=== PATIENT | male | born 1945 | race Caucasian/White ===

== ENCOUNTER → 2018-11-25 | Outpatient (CLI) | payer MEDICARE, OTHER ==
[2018-11-25 16:20] LABS: BUN/CREATININE RATIO 13; CALCIUM 9.6 MG/DL (8.5-10.1); CARBON DIOXIDE 25 MMOL/L (21-32); CHLORIDE 99 MMOL/L (98-107); GFR ESTIMATED > 60; GLUCOSE 136 MG/DL (70-105); POTASSIUM 4.4 MMOL/L (3.6-5.0); SODIUM 139 MMOL/L (135-145)
== END ==
LOC: LAB FS 15:20
PROVIDERS: ATTEND Nurse Practitioner Family
DX: I10 Essential (primary) hypertension (principal); J44.9 Chronic obstructive pulmonary disease, unspecified; Z79.899 Other long term (current) drug therapy
CPT/HCPCS: 36415; 80048; 83880

== ENCOUNTER → 2018-12-16 | Outpatient (CLI) | payer MEDICARE, OTHER ==
[2018-12-16 10:50] LABS: BUN/CREATININE RATIO 13; CALCIUM 9.3 MG/DL (8.5-10.1); CARBON DIOXIDE 27 MMOL/L (21-32); CHLORIDE 99 MMOL/L (98-107); CREATININE SERUM 0.98 MG/DL (0.60-1.30); GFR ESTIMATED > 60; GLUCOSE 243 MG/DL (70-105); POTASSIUM 4.4 MMOL/L (3.6-5.0); SODIUM 138 MMOL/L (135-145)
== END ==
LOC: LAB FS 10:22
PROVIDERS: ATTEND Nurse Practitioner Family
DX: I11.9 Hypertensive heart disease without heart failure (principal); I77.810 Thoracic aortic ectasia; I35.0 Nonrheumatic aortic (valve) stenosis; E78.2 Mixed hyperlipidemia
CPT/HCPCS: 36415; 80048

== ENCOUNTER 2020-03-25 14:55 | Inpatient (IN) | payer MEDICARE, OTHER ==
[2020-03-25] MEDS ORDERED: FURO20TA4 PO (15:23)
[2020-03-25] MEDS ORDERED: MTP25TSR PO (15:23)
[2020-03-25] MEDS ORDERED: ALBU2.5V4 NEB (15:23)
[2020-03-25] MEDS ORDERED: BUDE10.2 INH (15:23)
[2020-03-25] MEDS ORDERED: ATOR40TA70 PO (15:23)
[2020-03-25] MEDS ORDERED: CANA300T PO (15:23)
[2020-03-25] MEDS ORDERED: INSU100V SC (15:23)
[2020-03-25] MEDS ORDERED: INSU100V5 SC (15:23)
[2020-03-25] MEDS ORDERED: AMLO5TAB9 PO (15:23)
[2020-03-25] MEDS ORDERED: LOSA100T57 PO (15:23)
[2020-03-25] MEDS ORDERED: METF750T45 PO (15:23)
--- NOTE | 2020-03-25 15:26 | ED Respiratory ---
General Chief Complaint: Respiratory Problems Stated Complaint: SOB Source: patient, family, RN/MD, RN notes reviewed, old records Exam Limitations: no limitations History of Present Illness Date Seen by Provider: Mar 25, 2020 Time Seen by Provider: 15:15 Initial Comments This patient is a 74-year-old male that presents to the emergency department complaining she shortness of breath. Patient recently had a COVID-19 positive test 2 days ago. But has been short of breath since Sunday which was 5 days ago. Patient does have a history of emphysema and does wear oxygen at night. Patient also was take several breathing treatments throughout the day. Patient also has a history of diabetes and hypertension. Patient states just increasing shortness of breath.'s states both him and his are both sick and positive covert patient's. Patient states he just can't get enough air. We'll do medical evaluation treatment is needed. Patient's pulse ox on room air was 84%and was placed on nasal cannula at 2-3 L by nursing staff. Pulse ox at this time is up to 94% on oxygen Timing/Duration: week Severity: moderate Associated Symptoms: cough, fever/chills, shortness of breath Allergies and Home Medications Allergies Coded Allergies: pioglitazone (Verified Allergy, Unknown, cough, 03/25/20) Patient Home Medication List Home Medication List Reviewed: Yes Review of Systems Review of Systems Constitutional: No no symptoms reported, No see HPI; chills; No diaphoresis, No dizziness; fever, malaise; No weakness, No weight gain, No weight loss, No other EENTM: nose congestion; No see HPI, No no symptoms reported, No ear discharge, No hearing loss, No ear pain, No blurred vision, No double vision, No eye pain, No tearing, No vision loss, No dental problems, No hoarseness, No mouth pain, No mouth swelling, No epistaxis, No nose pain, No throat pain, No throat swelling, No other Respiratory: No no symptoms reported; see HPI, cough; No dyspnea on exertion, No hemoptysis, No orthopnea, No phlegm; short of breath; No stridor, No wheezing, No other Cardiovascular: No no symptoms reported, No see HPI, No chest pain, No edema, No Hx of Intervention, No palpitations, No syncope, No vascular heart diseas, No other Gastrointestinal: No RUQ, No LUQ, No RLQ, No LLQ, No no symptoms reported, No see HPI, No abdominal pain, No constipation, No diarrhea, No dysphagia, No hematemesis, No heartburn, No jaundice, No loss of appetite, No melena, No nausea, No vomiting, No other Genitourinary: No no symptoms reported, No see HPI, No decreased output, No discharge, No dysuria, No frequency, No hematuria, No hesitancy, No incontinence, No nocturia, No pain, No other Musculoskeletal: No no symptoms reported, No see HPI, No back pain, No gout, No joint pain, No joint swelling, No muscle pain, No muscle stiffness, No muscle cramps, No muscle twitching, No muscle weakness, No neck pain, No other Skin: No no symptoms reported, No see HPI, No change in color, No change in hair/nails, No dryness, No hx of skin cancer, No lesions, No lumps, No pruritus, No rash, No other Psychiatric/Neurological: Denies No Symptoms Reported, Denies See HPI, Denies Anxiety, Denies Depressed, Denies Emotional Problems, Denies Headache, Denies Numbness, Denies Paresthesia, Denies Pre-Existing Deficit, Denies Seizure, Denies Tingling, Denies Tremors, Denies Weakness, Denies Other All Other Systems Reviewed Negative Unless Noted: Yes Past Nihogcq-Zjjjvd-Tbxyrf Hx Patient Social History Recent Foreign Travel: No Contact w/Someone Who Travel: No Physical Exam Vital Signs - First Documented 03/25/20 15:24 Temp 39.3 Pulse 79 Resp 20 B/P (MAP) 152/63 (92) Pulse Ox 94 O2 Delivery Nasal Cannula O2 Flow Rate 2.00 Capillary Refill : Height: '" Weight: lbs. oz. kg; BMI Method: General Appearance: WD/WN, no apparent distress HEENT: PERRL/EOMI, normal ENT inspection, TMs normal, pharynx normal Neck: non-tender, full range of motion, supple, normal inspection, carotid bruit Respiratory: chest non-tender, lungs clear, no respiratory distress, no accessory muscle use, respiratory distress, decreased breath sounds Cardiovascular: normal peripheral pulses, regular rate, rhythm, no edema, no gallop, no JVD, no murmur Gastrointestinal: normal bowel sounds, non tender, soft, no organomegaly, no pulsatile mass Neurologic/Psychiatric: awake overnight monitor II-XII nml as tested, no motor/sensory deficits, alert, normal mood/affect, oriented x 3 Skin: normal color, warm/dry, damp Lymphatic: no adenopathy, axilla node tender (R), axilla node tender (L), inguinal node tender (R), inguinal node tender (L) Focused Exam Lactate Level 03/25/20 15:55: Lactic Acid Level 1.36 Lactic Acid Level Laboratory Tests Test 03/25/20 15:55 Lactic Acid Level 1.36 MMOL/L (0.50-2.00) Progress/Results/Core Measures Suspected Sepsis SIRS Temperature: Pulse: Respiratory Rate: Laboratory Tests 03/25/20 15:55: White Blood Count 4.4 Blood Pressure / Mean: 03/25/20 15:55: Lactic Acid Level 1.36 Laboratory Tests 03/25/20 15:55: Creatinine 1.03, INR Comment 0.8, Platelet Count 150, Total Bilirubin 0.6 Results/Orders Lab Results Laboratory Tests Test 03/25/20 15:55 03/25/20 16:08 Range/Units White Blood Count 4.4 4.3-11.0 10^3/uL Red Blood Count 5.37 4.35-5.85 10^6/uL Hemoglobin 16.2 13.3-17.7 G/DL Hematocrit 45 40-54 % Mean Corpuscular Volume 85 80-99 FL Mean Corpuscular Hemoglobin 30 25-34 PG Mean Corpuscular Hemoglobin Concent 36 32-36 G/DL Red Cell Distribution Width 13.0 10.0-14.5 % Platelet Count 150 130-400 10^3/uL Mean Platelet Volume 9.7 7.4-10.4 FL Neutrophils (%) (Auto) 77 H 42-75 % Lymphocytes (%) (Auto) 14 12-44 % Monocytes (%) (Auto) 8 0-12 % Eosinophils (%) (Auto) 0 0-10 % Basophils (%) (Auto) 1 0-10 % Neutrophils # (Auto) 3.4 1.8-7.8 X 10^3 Lymphocytes # (Auto) 0.6 L 1.0-4.0 X 10^3 Monocytes # (Auto) 0.3 0.0-1.0 X 10^3 Eosinophils # (Auto) 0.0 0.0-0.3 10^3/uL Basophils # (Auto) 0.0 0.0-0.1 10^3/uL Prothrombin Time 11.7 L 12.2-14.7 SEC INR Comment 0.8 0.8-1.4 Sodium Level 124 *L 135-145 MMOL/L Potassium Level 4.3 3.6-5.0 MMOL/L Chloride Level 92 L 98-107 MMOL/L Carbon Dioxide Level 20 L 21-32 MMOL/L Anion Gap 12 5-14 MMOL/L Blood Urea Nitrogen 22 H 7-18 MG/DL Creatinine 1.03 0.60-1.30 MG/DL Estimat Glomerular Filtration Rate > 60 BUN/Creatinine Ratio 21 Glucose Level 92 70-105 MG/DL Lactic Acid Level 1.36 0.50-2.00 MMOL/L Calcium Level 8.0 L 8.5-10.1 MG/DL Corrected Calcium 8.6 8.5-10.1 MG/DL Total Bilirubin 0.6 0.1-1.0 MG/DL Aspartate Amino Transf (AST/SGOT) 42 H 5-34 U/L Alanine Aminotransferase (ALT/SGPT) 35 0-55 U/L Alkaline Phosphatase 72 40-136 U/L Troponin I < 0.30 <0.30 NG/ML Pro-B-Type Natriuretic Peptide 157.5 H <75.0 PG/ML Total Protein 6.4 6.4-8.2 GM/DL Albumin 3.2 3.2-4.5 GM/DL Blood Gas Puncture Site RT RADIAL Blood Gas Patient Temperature 102.6 Arterial Blood pH 7.47 H 7.37-7.43 Arterial Blood Partial Pressure CO2 31 L 35-45 MMHG Arterial Blood Partial Pressure O2 64 L 79-93 MMHG Arterial Blood HCO3 23 23-27 MMOL/L Arterial Blood Total CO2 23.6 21.0-31.0 MMOL/L Arterial Blood Oxygen Saturation 93 L 94-100 % Arterial Blood Base Excess -0.3 -2.5-2.5 MMOL/L Derrell Test OK Blood Gas Ventilator Setting NO Blood Gas Inspired Oxygen 2L My Orders Orders - JANELLE ROJAS MD Cbc With Automated Diff (03/25/20 15:20) Creatine Kinase Mb (03/25/20 15:20) Blood Culture (03/25/20 15:20) Arterial Blood Gas (03/25/20 15:20) Probnp Fs (03/25/20 15:20) Protime With Inr (03/25/20 15:20) Troponin I Fs (03/25/20 15:20) Chest 1 View Ap/Pa Only (03/25/20 15:20) Ekg Tracing (03/25/20 15:20) Ed Iv/Invasive Line Start (03/25/20 15:20) Lactic Acid Analyzer (03/25/20 15:20) Albuterol/Ipra Inhalation Soln (Duoneb I (03/25/20 15:30) Svn Small Volume Nebulizer (03/25/20 15:22) Blood Culture (03/25/20 15:36) Acetaminophen Tablet/Caplet (Tylenol T (03/25/20 16:15) Comprehensive Metabolic Panel (03/25/20 16:32) Medications Given in ED Current Medications Medications Dose Ordered Sig/Sina Route Start Time Stop Time Status Last Admin Dose Admin Acetaminophen 650 mg ONCE ONCE PO 03/25/20 16:15 03/25/20 16:16 DC 03/25/20 16:15 650 MG Albuterol/ Ipratropium 3 ml ONCE ONCE INH 03/25/20 15:30 03/25/20 15:31 DC 03/25/20 16:05 3 ML Vital Signs/I&O 03/25/20 15:24 Temp 39.3 Pulse 79 Resp 20 B/P (MAP) 152/63 (92) Pulse Ox 94 O2 Delivery Nasal Cannula O2 Flow Rate 2.00 Capillary Refill : Progress Note : Time: 16:41 Progress Note IMPRESSION: Coarse interstitial lung markings greatest within the peripheral lung cuellar. Findings can be seen as a sequela of viral pneumonia. Clinical correlation is recommended. I did discuss at length with patient about his concerns for COPD COVID-19 positive patient with viral pneumonia shortness of breath. He is agreeable for transfer to [facility]. I did discuss at length with Dr. Skelton who is accepted this patient. Patient be transferred to their facility as soon as possible. ECG Initial ECG Impression Date: Mar 25, 2020 Initial ECG Impression Time: 15:30 Initial ECG Rate: 75 Initial ECG Rhythm: Normal Sinus, PAC Initial ECG Impression: Nonspecific Changes (sinus rhythm with PACs heart rate 75 has prolonged [place] interval right bundle branch block and nonspecific ST-T wave changes.) Departure Impression Primary Impression: Viral pneumonia Additional Impressions: COVID-19 COPD (chronic obstructive pulmonary disease) Dyspnea and respiratory abnormalities Diabetes Disposition: ADMITTED INPATIENT Condition: Stable Admissions Decision to Admit Reason: Admit from ER (General) Decision to Admit/Date: Mar 25, 2020 Time/Decision to Admit Time: 16:51 Transfer Transfer Reason: Exceeds level of care Time Spoke to Accepting Phy: 16:[address] Skelton Transfer Time: 16:51 Transfer Facility: [facility] Method of Transfer: EMS Departure-Patient Inst. Referrals: [facility] (PCP) Primary Care Physician HELENA YODER (Family) Primary Care Physician JANELLE ROJAS MD Mar 25, 2020 15:26
[2020-03-25] MEDS ORDERED: RT-ALBUTEROL/IPRATROPIUM 3 ML (DUONEB) VIAL INH ONE (15:30)
[2020-03-25 16:10] LABS: HEMATOCRIT 45 % (40-54); HEMOGLOBIN 16.2 G/DL (13.3-17.7); LYMPHOCYTES % (AUTO) 14 % (12-44); MEAN CORPUSCULAR HEMOGLOBIN 30 PG (25-34); MEAN CORPUSCULAR HGB CONC 36 G/DL (32-36); MEAN CORPUSCULAR VOLUME 85 FL (80-99); MEAN PLATELET VOLUME 9.7 FL (7.4-10.4); MONOCYTES % (AUTO) 8 % (0-12); NEUTROPHILS % (AUTO) 77 % (42-75); PLATELET COUNT 150 10^3/uL (130-400); WHITE BLOOD COUNT 4.4 10^3/uL (4.3-11.0)
[2020-03-25 16:11] LABS: BASOPHILS % (AUTO) 1 % (0-10); EOSINOPHILS % (AUTO) 0 % (0-10); LYMPHOCYTES # (AUTO) 0.6 X 10^3 (1.0-4.0); MONOCYTES # (AUTO) 0.3 X 10^3 (0.0-1.0); NEUTROPHILS # (AUTO) 3.4 X 10^3 (1.8-7.8)
--- NOTE | 2020-03-25 16:14 | Diagnostic Imaging Report ---
INDICATION: Shortness of air. COMPARISON: None. EXAMINATION: Single frontal radiographic view of the chest was obtained. FINDINGS: Normal cardiac silhouette and pulmonary vasculature. Lungs show coarse interstitial opacities greatest within the peripheral lung cuellar. There is no large effusion or pneumothorax. Osseous structures show no acute abnormality. IMPRESSION: Coarse interstitial lung markings greatest within the peripheral lung cuellar. Findings can be seen as a sequela of viral pneumonia. Clinical correlation is recommended. Dictated by: Dictated on workstation # [id number]
[2020-03-25] MEDS ORDERED: ACETAMINOPHEN 325 MG TABLET PO ONE (16:15)
[2020-03-25 16:17] LABS: ABG BASE EXCESS -0.3 MMOL/L (-2.5-2.5); ABG OXYGEN SATURATION 93 % (94-100); ABG PCO2 31 MMHG (35-45); ABG PH 7.47 (7.37-7.43); ABG PO2 64 MMHG (79-93); ABG TCO2 23.6 MMOL/L (21.0-31.0); ALLENS TEST OK
[2020-03-25 16:18] LABS: INSPIRED O2 2L; PATIENT TEMP 102.6; VENTILATOR NO
[2020-03-25 16:18] LABS: INR 0.8 (0.8-1.4); PROTHROMBIN TIME PATIENT 11.7 SEC (12.2-14.7)
[2020-03-25 16:55] LABS: BUN/CREATININE RATIO 21; CARBON DIOXIDE 20 MMOL/L (21-32); CHLORIDE 92 MMOL/L (98-107); CREATININE SERUM 1.03 MG/DL (0.60-1.30); GFR ESTIMATED > 60; GLUCOSE 92 MG/DL (70-105); POTASSIUM 4.3 MMOL/L (3.6-5.0); SODIUM 124 MMOL/L (135-145)
[2020-03-25 16:56] LABS: ALANINE AMINOTRANSFERASE 35 U/L (0-55); ALBUMIN 3.2 GM/DL (3.2-4.5); ALKALINE PHOSPHATASE 72 U/L (40-136); BILIRUBIN,TOTAL 0.6 MG/DL (0.1-1.0); TOTAL PROTEIN 6.4 GM/DL (6.4-8.2)
[2020-03-25] MEDS ORDERED: NS IV 1000 ML 1,000 ML IV STA (16:59)
[2020-03-25 19:06] VITALS: BP 169/83
[2020-03-25 19:45] VITALS: BP 149/90
[2020-03-25] MEDS ORDERED: diphenhydrAMINE 25 MG TAB (BENADRYL) PO PRN (19:45)
[2020-03-25] MEDS ORDERED: ONDANSETRON 4 MG/5 ML ORAL SOLN (ZOFRAN) 5 ML PO PRN (19:45)
[2020-03-25] MEDS ORDERED: ONDANSETRON 4 MG/2 ML (SDV) Z0FRAN IV PRN (19:45)
[2020-03-25] MEDS ORDERED: CALCIUM CARBONATE 500 MG (TUMS) TAB.CHEW PO PRN (19:45)
[2020-03-25] MEDS ORDERED: HYDROcodone/APAP 5 MG/325 MG (LORTAB) TAB PO PRN (19:45)
[2020-03-25] MEDS ORDERED: MELATONIN 3 MG TABLET PO PRN (19:45)
[2020-03-25] MEDS ORDERED: DOCUSATE SODIUM 100 MG (COLACE) CAP PO PRN (19:45)
[2020-03-25] MEDS ORDERED: ACETAMINOPHEN 325 MG TABLET PO PRN (19:45)
[2020-03-25] MEDS ORDERED: ALPRAZolam 0.25 MG (XANAX) TAB PO PRN (19:45)
--- NOTE | 2020-03-25 20:15 | Diagnostic Imaging Report ---
EXAM: Chest 1 view, AP/PA only INDICATION: Pneumonitis. COMPARISON: Chest radiograph 03/25/2020 at 3:57 PM. FINDINGS: Heart size is accentuated by low lung volumes. Normal central pulmonary vascularity. No focal pulmonary opacity. Mild diffuse interstitial opacities are stable. No pleural effusion or pneumothorax. No acute osseous finding. IMPRESSION: 1. Mild diffuse interstitial opacities are similar to the prior exam. No focal consolidation. 2. Low lung volumes accentuate the heart size which is likely normal. Dictated by: Dictated on workstation # [id number]
[2020-03-25] MEDS: NS IV 1000 ML 1,000 ML IV SCH (20:27)
[2020-03-25] MEDS: CEFEPIME INJECTION 2,000 MG in WATER (STERILE) FOR INJECTION 20 ML IV SCH (20:28)
[2020-03-25] MEDS: AZITHROMYCIN INJECTION 500 MG in NS (IVPB) 250 ML IV SCH (20:28)
[2020-03-25] MEDS: SENNA W/DOCUSATE (SENOKOT S) TABLET PO SCH (20:28)
[2020-03-25] MEDS: guaiFENesin/CODEINE (ROBITUSSIN AC) 10ML UDC PO SCH (20:28)
[2020-03-25 20:45] VITALS: BP 140/81
[2020-03-25] MEDS: ENOXAPARIN 40 MG/0.4 ML (LOVENOX) SYR SC SCH (20:51)
[2020-03-25 21:03] LABS: CREATINE KINASE MB 4.8 NG/ML (<6.6)
[2020-03-25 22:00] VITALS: BP 119/57
[2020-03-25 23:00] VITALS: BP 154/85
[2020-03-26] VITALS (16 sets, daily range): BP systolic 114–179; BP diastolic 60–98
[2020-03-26] MEDS: guaiFENesin/CODEINE (ROBITUSSIN AC) 10ML UDC PO SCH ×6 (00:45→21:22)
[2020-03-26 04:34] LABS: BASOPHILS % (AUTO) 0 % (0-10); EOSINOPHILS % (AUTO) 0 % (0-10); HEMATOCRIT 43 % (40-54); HEMOGLOBIN 15.5 G/DL (13.3-17.7); LYMPHOCYTES # (AUTO) 0.8 X 10^3 (1.0-4.0); LYMPHOCYTES % (AUTO) 23 % (12-44); MEAN CORPUSCULAR HEMOGLOBIN 30 PG (25-34); MEAN CORPUSCULAR HGB CONC 36 G/DL (32-36); MEAN CORPUSCULAR VOLUME 84 FL (80-99); MONOCYTES # (AUTO) 0.3 X 10^3 (0.0-1.0); MONOCYTES % (AUTO) 9 % (0-12); NEUTROPHILS # (AUTO) 2.3 X 10^3 (1.8-7.8); NEUTROPHILS % (AUTO) 68 % (42-75); PLATELET COUNT 135 10^3/uL (130-400); WHITE BLOOD COUNT 3.3 10^3/uL (4.3-11.0)
[2020-03-26 04:50] LABS: CHLORIDE 100 MMOL/L (98-107); POTASSIUM 4.4 MMOL/L (3.6-5.0); SODIUM 131 MMOL/L (135-145)
[2020-03-26 04:51] LABS: CALCIUM 7.7 MG/DL (8.5-10.1)
[2020-03-26 04:52] LABS: GLUCOSE 112 MG/DL (70-105)
[2020-03-26 04:53] LABS: CARBON DIOXIDE 21 MMOL/L (21-32)
[2020-03-26 04:55] LABS: PHOSPHORUS 2.8 MG/DL (2.3-4.7)
[2020-03-26 04:56] LABS: CREATININE SERUM 0.95 MG/DL (0.60-1.30); GFR ESTIMATED > 60
[2020-03-26 04:57] LABS: BUN/CREATININE RATIO 17
[2020-03-26 04:58] LABS: MAGNESIUM 2.2 MG/DL (1.6-2.4)
--- NOTE | 2020-03-26 05:28 | History & Physical-Hospitalist ---
History of Present Illness HPI/Chief Complaint CC: Hypoxia with Covid-19 HPI: This is a 74yoWM who became positive for Covid-19, started having SOB, presented to the [facility] ER and Pt has been monitored in the ICU and is currently doing well. He usually uses 2L of oxygen at night. Overall he feels much better but the cough is pretty severe. Source: patient, RN/MD Exam Limitations: no limitations Date Seen 03/26/20 Time Seen by a Provider: 11:00 Attending Physician Shyanne Skelton DO [facility] Referring Physician Date of Admission Mar 25, 2020 at 19:00 Home Medications & Allergies Home Medications Reviewed patient Home Medication Reconciliation performed by pharmacy medication reconciliations locate technician and/or nursing. Patients Allergies have been reviewed. Allergies Allergies Coded Allergies pioglitazone (Verified Allergy, Unknown, cough, 03/25/20) Past Dkhdjrm-Qspach-Jxfrcw Hx Past Med/Social Hx: Reviewed Nursing Past Med/Soc Hx, Reviewed and Corrections made Patient Social History Marrital Status: Employed/Student: retired Alcohol Use: Denies Use Recreational Drug Use: No Smoking Status: Never a Smoker 2nd Hand Smoke Exposure: No Recent Foreign Travel: No Contact w/other who traveled: No Recent Hopitalizations: No Recent Infectious Disease Expo: No Seasonal Allergies Seasonal Allergies: No Past Medical History Surgeries: Appendectomy Cardiac: Hypertension Endocrine: Diabetes, Insulin dep History of Blood Disorders: No Adverse Reaction to Blood Harry: No Review of Systems Constitutional: see HPI, fever, malaise, weakness Respiratory: cough, dyspnea on exertion Psychiatric/Neurological: See HPI Physical Exam Physical Exam Vital Signs Vital Signs - First Documented 03/25/20 03/26/20 15:24 00:53 Temp 39.3 Pulse 79 Resp 20 B/P (MAP) 152/63 (92) Pulse Ox 94 O2 Delivery Nasal Cannula O2 Flow Rate 2.00 FiO2 28 Capillary Refill : Less Than 3 Seconds Height, Weight, BMI Height: '" Weight: lbs. oz. kg; BMI Method: General Appearance: No Apparent Distress, Anxious, Chronically ill Eyes: Right Eye Normal Inspection, Right Eye PERRL HEENT: PERRL/EOMI, Normal ENT Inspection, Pharynx Normal, Moist Mucous Membranes Neck: Full Range of Motion, Normal Inspection, Non Tender Respiratory: Chest Non Tender, No Accessory Muscle Use, No Respiratory Distress, Crackles, Decreased Breath Sounds, Wheezing Cardiovascular: Regular Rate, Rhythm, No Edema, No Gallop, No JVD, No Murmur, Normal Peripheral Pulses Gastrointestinal: Normal Bowel Sounds, No Organomegaly, No Pulsatile Mass, Non Tender, Soft Back: Normal Inspection, No CVA Tenderness, No Vertebral Tenderness Extremity: Normal Capillary Refill, Normal Inspection, Normal Range of Motion, Non Tender, No Calf Tenderness, No Pedal Edema Neurologic/Psychiatric: Alert, Oriented x3, No Motor/Sensory Deficits, Normal Mood/Affect Skin: Normal Color, Warm/Dry Lymphatic: No Adenopathy Results Results/Procedures Labs Laboratory Tests 03/25/20 15:55 03/26/20 04:00 Patient resulted labs reviewed. Assessment/Plan Admission Diagnosis Assessment: COVID-19 Hypoxia COPD DM Plan: Antiviral Transfer to 4th floor Oxygen supplementation Admission Status: Inpatient Order (span 2 midnights) Reason for Inpatient Admission: COVID 19 PNA Diagnosis/Problems Diagnosis/Problems (1) COVID-19 Status: Acute (2) Viral pneumonia Status: Acute (3) Diabetes Status: Acute (4) Dyspnea and respiratory abnormalities Status: Acute (5) COPD (chronic obstructive pulmonary disease) Status: Acute Clinical Quality Measures DVT/VTE Risk/Contraindication: Risk Factor Score Per Nursin RFS Level Per Nursing on Admit: 4+=Very High SHYANNE SKELTON DO Mar 26, 2020 05:28
--- NOTE | 2020-03-26 05:48 | Pulmonary Consultation ---
History of Present Illness History of Present Illness Date Seen by Provider: Mar 26, 2020 Time Seen by Provider: 05:43 Date of Admission History of Present Illness 74yo with hx of COPD and recent positive COVID testing 2 days ago presented to ED secondary to worsening SOB since Sunday. Sp02 on RA was 84% which did improve with oxygen. Pt's has also tested positive for COVID. I am consulted for ICU management. Allergies and Home Medications Allergies Coded Allergies: pioglitazone (Verified Allergy, Unknown, cough, 03/25/20) Past Sgjyxxx-Bhbzmo-Cvddex Hx Patient Social History Alcohol Use: Denies Use Recreational Drug Use: No Smoking Status: Never a Smoker 2nd Hand Smoke Exposure: No Recent Foreign Travel: No Contact w/Someone Who Travel: No Recent Infectious Disease Expo: No Recent Hopitalizations: No Physical Abuse: No Sexual Abuse: No Mistreated: No Fear: No Seasonal Allergies Seasonal Allergies: No Past Medical History Surgeries: Yes Appendectomy Respiratory: Yes Emphysema Cardiac: Yes Hypertension Neurological: No Genitourinary: No Gastrointestinal: No Musculoskeletal: No Endocrine: Yes Diabetes, Insulin dep HEENT: No Cancer: No Psychosocial: No Integumentary: No Blood Disorders: No Adverse Reaction/Blood Tranf: No Review of Systems Time Seen by Provider: 05:47 Sepsis Event Evaluation Height, Weight, BMI Height: '" Weight: lbs. oz. kg; BMI Method: Exam Exam Vital Signs Date Time Temp Pulse Resp B/P (MAP) Pulse Ox O2 Delivery O2 Flow Rate FiO2 03/26/20 05:00 85 24 179/98 (125) 93 Nasal Cannula 2.00 03/26/20 04:00 95 Nasal Cannula 2.00 03/26/20 04:00 70 19 114/86 (95) 93 Nasal Cannula 2.00 03/26/20 03:00 60 20 124/69 (87) 94 Nasal Cannula 2.00 03/26/20 02:00 67 13 126/60 (82) 94 Nasal Cannula 2.00 03/26/20 01:20 37.4 03/26/20 01:00 77 31 147/66 (93) 93 Nasal Cannula 2.00 03/26/20 01:00 75 03/26/20 00:53 37.8 76 95 28 03/26/20 00:48 37.8 03/26/20 00:00 37.8 03/26/20 00:00 95 Nasal Cannula 2.00 03/26/20 00:00 76 28 162/77 (105) 90 Nasal Cannula 2.00 03/25/20 23:17 95 Nasal Cannula 2.00 03/25/20 23:00 78 30 154/85 (108) 94 Nasal Cannula 2.00 03/25/20 22:00 84 29 119/57 (77) 91 Nasal Cannula 2.00 03/25/20 20:45 77 21 140/81 (100) 94 Nasal Cannula 2.00 03/25/20 20:15 62 30 95 Nasal Cannula 2.00 03/25/20 20:00 36.4 03/25/20 20:00 95 Nasal Cannula 2.00 03/25/20 20:00 Nasal Cannula 2.00 03/25/20 19:45 74 32 149/90 (109) 95 Nasal Cannula 2.00 03/25/20 19:30 73 25 94 Nasal Cannula 2.00 03/25/20 19:15 70 23 95 Nasal Cannula 2.00 03/25/20 19:08 72 03/25/20 19:06 37.1 71 23 169/83 (111) 95 Nasal Cannula 2.00 03/25/20 18:17 37.3 70 22 114/97 95 03/25/20 15:24 39.3 79 20 152/63 (92) 94 Nasal Cannula 2.00 I & O 03/26/20 07:00 Intake Total 1200 ml Output Total 920 ml Balance 280 ml Height & Weight Height: '" Weight: lbs. oz. kg; BMI Method: Capillary Refill: Less Than 3 Seconds Gastrointestinal: normal bowel sounds, non tender, soft, no organomegaly, no pulsatile mass Results Lab Laboratory Tests 03/25/20 15:55 03/26/20 04:00 Assessment/Plan Assessment/Plan Acute respiratory distress with hypoxemia COVID-19 pneumonia -Start Remdesivir, convalescent plasma -Start Decadron Hyponatremia -Monitor ULISES MURRY DO Mar 26, 2020 05:48
[2020-03-26] MEDS ORDERED: MAGNESIUM 1 GM/100 ML IVPB 100 ML IV SCH (06:00)
[2020-03-26] MEDS ORDERED: KCL 20 MEQ TAB (K-DUR) PO SCH (06:00)
[2020-03-26] MEDS ORDERED: POTASSIUM CL 10MEQ/50ML IVPB 50 ML IV SCH (06:00)
[2020-03-26] MEDS: dexAMETHasone 6 MG TAB (DECADRON) PO SCH (06:47)
[2020-03-26] MEDS: ENOXAPARIN 40 MG/0.4 ML (LOVENOX) SYR SC SCH ×2 (08:42→22:54)
[2020-03-26] MEDS: CEFEPIME INJECTION 2,000 MG in WATER (STERILE) FOR INJECTION 20 ML IV SCH ×2 (08:42→22:53)
[2020-03-26] MEDS: PANTOPRAZOLE 40 MG (PROTONIX) TAB PO SCH (08:44)
[2020-03-26] MEDS: SENNA W/DOCUSATE (SENOKOT S) TABLET PO SCH ×2 (08:44→22:53)
[2020-03-26] MEDS ORDERED: REMDESIVIR INJ (NON-FORMULARY) 200 MG in NS (IVPB) 210 ML IV NR (09:00)
[2020-03-26] MEDS ORDERED: dexAMETHasone 6 MG TAB (DECADRON) PO SCH (09:00)
[2020-03-26] MEDS: RT-ALBUTEROL INHALER HFA (VENTOLIN HFA) 18 GM IH SCH ×4 (09:15→22:01)
[2020-03-26] MEDS ORDERED: inSUlin ASPART (NovoLOG) 1 UNIT/0.01 ML (CHARGE PER UNIT) ONE (10:50)
[2020-03-26] MEDS: inSUlin ASPART (NovoLOG) 1 UNIT/0.01 ML (CHARGE PER UNIT) SC SCH ×3 (10:56→22:53)
[2020-03-26] MEDS: NS IV 1000 ML 1,000 ML IV SCH ×2 (10:56→17:50)
[2020-03-26] MEDS: RT-ALBUTEROL INHALER HFA (VENTOLIN HFA) 18 GM IH PRN ×2 (11:15→22:00)
[2020-03-26] MEDS ORDERED: FLUT9.9S NS (11:53)
[2020-03-26] MEDS ORDERED: ASCO500C17 PO (11:53)
[2020-03-26] MEDS ORDERED: ASPI325T32 PO (11:53)
[2020-03-26] MEDS ORDERED: POTA99TA21 PO (11:53)
[2020-03-26] MEDS ORDERED: CYAN500T62 PO (11:53)
[2020-03-26] MEDS ORDERED: FAMO20TA5 PO (11:53)
--- NOTE | 2020-03-26 11:59 | NUR ---
SPOKE WITH THE PT ( I CALLED HIS ROOM PHONE) AND HE WANTED ME TO CALL HIS CHELSEA- I SPOKE WITH HER AND WENT THRU THE EXT MED HISTORY TO COMPLETE THE MED REC FUROSEMIDE 20MG- DIRECTIONS SHOW 1 TAB DAILY HOWEVER PT SOMETIMES TAKES 40MG ( 2-20MG TABS) IF HE HAS EXCESS FLUID RETENTION OTC MEDS: POTASSIUM GLUC VIT B12 VIT C FLONASE ASPIRIN 325MG- PT ONLY TAKES TAB
--- NOTE | 2020-03-26 17:20 | NUR ---
PATIENT TO FLOOR AT THIS TIME VIA W/C ACCOMPANIED BY ICU STAFF. THIS RN WILL ASSUME CARE OF THIS PATIENT AT THIS TIME. Addendum: 03/26/20 at 1729 by SONIA TORRES RN PATIENT BELONGINGS BROUGHT TO ROOM UPON TRANSFER TO ROOM 427-1
[2020-03-26] MEDS ORDERED: NOREPINEPHRINE 4 MG/250 ML 250 ML IV SCH (18:00)
[2020-03-26] MEDS: AZITHROMYCIN INJECTION 500 MG in NS (IVPB) 250 ML IV SCH (21:22)
[2020-03-26] MEDS ORDERED: CEFEPIME 2 GM (MAXIPIME) VIAL ONE (22:23)
[2020-03-26] MEDS ORDERED: WATER (STERILE) FOR INJECTION 20 ML ONE (22:23)
[2020-03-27] VITALS (29 sets, daily range): BP systolic 102–173; BP diastolic 53–95
[2020-03-27] MEDS: guaiFENesin/CODEINE (ROBITUSSIN AC) 10ML UDC PO SCH ×6 (00:28→20:56)
--- NOTE | 2020-03-27 00:30 | NUR ---
THIS RN WENT INTO PTS ROOM TO TAKE VITAL SIGNS. PTS O2 WAS 88% ON 4 LITERS OXYGEN. THIS RN INCREASED O2 TO 5 LITERS AND GAVE PT HIS PRN INHALER. PT O2 STILL AT 88-89%, THIS RN INCREASED O2 TO 7 LITERS AND SWITCHED NC TO HIGH FLOW NC. PT COMPLAINS OF NO SOB AT THIS TIME BUT THIS RN NOTICED PT HAVING ABD RETRACTIONS. PT O2 STILL ONLY 88-89% AFTER INSTRUCTING PT TO TAKE SLOW DEEP BREATHES IN THROUGH NOSE, OUT THROUGH MOUTH. PTS O2 INCREASED TO 10LITERS. OTHER RN INFORMED RT OF PTS CONDITION. PT O2 SATURATION 90% ON 10LITERS, RT INSTRUCTED RN TO INCREASE O2 TO 12 LITERS AND CALL DOCTOR FOR MORE ORDERS. OTHER RN SPOKE WITH DR. FLORES AND SHE RECEIVED ORDERS TO TRANSFER PT TO ICU. PT TRANSFERRED TO ICU.
[2020-03-27] MEDS: RT-ALBUTEROL INHALER HFA (VENTOLIN HFA) 18 GM IH PRN ×2 (00:36→16:37)
--- NOTE | 2020-03-27 02:29 | NUR ---
AT APPROXIMATELY 0030 THIS RN WAS NOTIFIED BY ANOTHER RN THAT PT's O2 SATS WERE 88% ON O2 AT 4L VIA NC. THE OTHER RN IN PT'S ROOM INCREASED O2 TO 5L AND ADMINISTERED A PRN INHALER, INCREASED O2 TO 7L SWITCHING TO HIGH FLOW NC, PT SATS 88-89%. AT APPROXIMATELY 0045 THIS RN CONTACTED RT AND NOTIFIED THEM OF CHANGES IN PT's CONDITION. RT TOLD THIS RN TO TURN O2 UP TO 12L AND TO CALL DOCTOR FOR FURTHER ORDERS. THIS RN CONTACTED DR. FLORES AT 0050 AND NOTIFIED HER OF CHANGES. ORDER RECEIVED TO TRANSFER PT TO ICU AND TO PUT IN eICU CONSULT. THIS RN CONTACTED CUT FILE CLERK AT 0055 TO UPDATE. AT APPROXIMATELY 0110 PT WAS TRANSPORTED UP TO ICU VIA HOSPITAL BED AND REPORT GIVEN TO RN RECEIVING PTGILBERTO.
[2020-03-27] MEDS: NS IV 1000 ML 1,000 ML IV SCH (03:50)
[2020-03-27 04:04] LABS: BASOPHILS % (AUTO) 0 % (0-10); EOSINOPHILS % (AUTO) 0 % (0-10); HEMATOCRIT 41 % (40-54); HEMOGLOBIN 14.9 G/DL (13.3-17.7); LYMPHOCYTES # (AUTO) 0.8 X 10^3 (1.0-4.0); LYMPHOCYTES % (AUTO) 19 % (12-44); MEAN CORPUSCULAR HEMOGLOBIN 30 PG (25-34); MEAN CORPUSCULAR HGB CONC 36 G/DL (32-36); MEAN CORPUSCULAR VOLUME 84 FL (80-99); MEAN PLATELET VOLUME 9.7 FL (7.4-10.4); MONOCYTES # (AUTO) 0.4 X 10^3 (0.0-1.0); MONOCYTES % (AUTO) 9 % (0-12); NEUTROPHILS # (AUTO) 3.1 X 10^3 (1.8-7.8); NEUTROPHILS % (AUTO) 71 % (42-75); PLATELET COUNT 162 10^3/uL (130-400); WHITE BLOOD COUNT 4.3 10^3/uL (4.3-11.0)
[2020-03-27 04:11] LABS: ALBUMIN 3.1 GM/DL (3.2-4.5); CHLORIDE 101 MMOL/L (98-107); POTASSIUM 4.1 MMOL/L (3.6-5.0); SODIUM 132 MMOL/L (135-145)
[2020-03-27 04:12] LABS: CALCIUM 7.6 MG/DL (8.5-10.1)
[2020-03-27 04:13] LABS: GLUCOSE 113 MG/DL (70-105)
[2020-03-27 04:15] LABS: BILIRUBIN,TOTAL 0.6 MG/DL (0.1-1.0); CARBON DIOXIDE 23 MMOL/L (21-32)
[2020-03-27 04:17] LABS: ALKALINE PHOSPHATASE 52 U/L (40-136); CREATININE SERUM 0.82 MG/DL (0.60-1.30); GFR ESTIMATED > 60; PHOSPHORUS 2.2 MG/DL (2.3-4.7)
[2020-03-27 04:18] LABS: BUN/CREATININE RATIO 22
[2020-03-27 04:20] LABS: ALANINE AMINOTRANSFERASE 30 U/L (0-55); MAGNESIUM 2.2 MG/DL (1.6-2.4)
[2020-03-27] MEDS: inSUlin ASPART (NovoLOG) 1 UNIT/0.01 ML (CHARGE PER UNIT) SC SCH ×4 (04:21→21:08)
--- NOTE | 2020-03-27 05:44 | Progress Note - Hospitalist ---
Subjective HPI/CC On Admission Date Seen by Provider: Mar 27, 2020 Time Seen by Provider: 11:30 CC: Hypoxia with Covid-19 HPI: This is a 74yoWM who became positive for Covid-19, started having SOB, presented to the [facility] and Pt has been monitored in the ICU and is currently doing well. He usually uses 2L of oxygen at night. Overall he feels much better but the cough is pretty severe. Subjective/Events-last exam Patient doing well Transferred to ICU last night due to worsening hypoxia Currently he is eating lunch and feels good Lungs are wheezing and crackles Will keep in ICU today and tonight Patient does not appear to be in any distress Review of Systems Pulmonary: Dyspnea, Cough Focused Exam Lactate Level 03/25/20 15:55: Lactic Acid Level 1.36 03/25/20 20:28: Lactic Acid Level 1.38 Objective Exam Vital Signs Vital Signs Date Time Temp Pulse Resp B/P (MAP) Pulse Ox O2 Delivery O2 Flow Rate FiO2 03/27/20 16:00 72 25 131/64 (86) High Flow N/C 10.00 03/27/20 15:40 96 03/27/20 07:43 36.8 03/26/20 00:53 28 Capillary Refill : Less Than 3 Seconds General Appearance: No Apparent Distress, WD/WN, Chronically ill Respiratory: Chest Non Tender, Normal Breath Sounds, No Accessory Muscle Use, No Respiratory Distress, Crackles, Decreased Breath Sounds, Wheezing Cardiovascular: Regular Rate, Rhythm, No Edema, No Gallop, No JVD, No Murmur, Normal Peripheral Pulses Neurologic/Psychiatric: Alert, Oriented x3, No Motor/Sensory Deficits, Normal Mood/Affect Results/Procedures Lab Laboratory Tests 03/27/20 03:22 Patient resulted labs reviewed. Assessment/Plan Assessment and Plan Assess & Plan/Chief Complaint Assessment: COVID-19 AECOPD DM OOC Plan: Monitor O2 sats s/p plasma and anti-virals Diagnosis/Problems Diagnosis/Problems (1) COVID-19 Status: Acute (2) Viral pneumonia Status: Acute (3) Diabetes Status: Acute (4) Dyspnea and respiratory abnormalities Status: Acute (5) COPD (chronic obstructive pulmonary disease) Status: Acute Clinical Quality Measures DVT/VTE Risk/Contraindication: Risk Factor Score Per Nursin RFS Level Per Nursing on Admit: 4+=Very High CHANDA FLORES DO Mar 27, 2020 05:44
[2020-03-27] MEDS: RT-ALBUTEROL INHALER HFA (VENTOLIN HFA) 18 GM IH SCH ×5 (07:38→18:18)
[2020-03-27] MEDS ORDERED: CEFEPIME 2 GM (MAXIPIME) VIAL ONE ×2 (08:24→20:01)
[2020-03-27] MEDS ORDERED: WATER (STERILE) FOR INJECTION 20 ML ONE ×2 (08:25→20:02)
[2020-03-27] MEDS: dexAMETHasone 6 MG TAB (DECADRON) PO SCH (08:53)
[2020-03-27] MEDS: REMDESIVIR INJ (NON-FORMULARY) 100 MG in NS (IVPB) 230 ML IV SCH (08:53)
[2020-03-27] MEDS: ENOXAPARIN 40 MG/0.4 ML (LOVENOX) SYR SC SCH ×2 (08:54→20:57)
[2020-03-27] MEDS: SENNA W/DOCUSATE (SENOKOT S) TABLET PO SCH ×2 (08:54→20:57)
[2020-03-27] MEDS: CEFEPIME INJECTION 2,000 MG in WATER (STERILE) FOR INJECTION 20 ML IV SCH ×2 (08:54→20:57)
[2020-03-27] MEDS: PANTOPRAZOLE 40 MG (PROTONIX) TAB PO SCH (08:54)
--- NOTE | 2020-03-27 09:40 | Diagnostic Imaging Report ---
EXAMINATION: Chest 1 view HISTORY: Hypoxia COMPARISON: 03/25/2020 FINDINGS: There has been worsening of bilateral interstitial and airspace opacities likely representing worsening edema which is now moderate. Fluid is present in the minor fissure. Heart is mildly enlarged. No pneumothorax. No pleural effusion. IMPRESSION: 1. Worsening of moderate pulmonary edema. Dictated by: Dictated on workstation # [id number]
[2020-03-27] MEDS ORDERED: AZITHROMYCIN INJECTION 500 MG/5 ML VIAL ONE (20:00)
[2020-03-27] MEDS ORDERED: NS (IVPB) 0 ML ONE (20:00)
[2020-03-27] MEDS: AZITHROMYCIN INJECTION 500 MG in NS (IVPB) 250 ML IV SCH (20:57)
[2020-03-27] MEDS ORDERED: diphenhydrAMINE 50 MG/ML INJ (BENADRYL) ONE (23:42)
[2020-03-28] VITALS (24 sets, daily range): BP systolic 115–163; BP diastolic 59–98
[2020-03-28] MEDS ORDERED: FAMOTIDINE 20MG/2ML IV (PEPCID) IVP ONE
[2020-03-28] MEDS ORDERED: methylPREDNISolone 125 MG (Solu-MEDROL) VIAL IVP ONE
[2020-03-28] MEDS ORDERED: diphenhydrAMINE 50 MG/ML INJ (BENADRYL) IVP ONE
[2020-03-28] MEDS: guaiFENesin/CODEINE (ROBITUSSIN AC) 10ML UDC PO SCH ×6 (00:28→20:52)
[2020-03-28] MEDS ORDERED: FUROSEMIDE 40 MG/4 ML INJ (LASIX) IVP ONE (00:30)
[2020-03-28 00:48] LABS: BASOPHILS % (AUTO) 0 % (0-10); EOSINOPHILS % (AUTO) 0 % (0-10); HEMATOCRIT 49 % (40-54); HEMOGLOBIN 17.8 G/DL (13.3-17.7); LYMPHOCYTES # (AUTO) 0.8 X 10^3 (1.0-4.0); LYMPHOCYTES % (AUTO) 10 % (12-44); MEAN CORPUSCULAR HEMOGLOBIN 30 PG (25-34); MEAN CORPUSCULAR HGB CONC 36 G/DL (32-36); MEAN CORPUSCULAR VOLUME 84 FL (80-99); MEAN PLATELET VOLUME 9.7 FL (7.4-10.4); MONOCYTES # (AUTO) 0.5 X 10^3 (0.0-1.0); MONOCYTES % (AUTO) 6 % (0-12); NEUTROPHILS # (AUTO) 6.5 X 10^3 (1.8-7.8); NEUTROPHILS % (AUTO) 84 % (42-75); PLATELET COUNT 223 10^3/uL (130-400); WHITE BLOOD COUNT 7.8 10^3/uL (4.3-11.0)
[2020-03-28 01:02] LABS: CHLORIDE 104 MMOL/L (98-107); POTASSIUM 4.6 MMOL/L (3.6-5.0); SODIUM 134 MMOL/L (135-145)
[2020-03-28 01:03] LABS: CALCIUM 7.9 MG/DL (8.5-10.1)
[2020-03-28 01:04] LABS: GLUCOSE 177 MG/DL (70-105)
[2020-03-28 01:05] LABS: CARBON DIOXIDE 18 MMOL/L (21-32)
[2020-03-28 01:07] LABS: CREATININE SERUM 0.93 MG/DL (0.60-1.30); GFR ESTIMATED > 60; PHOSPHORUS 2.6 MG/DL (2.3-4.7)
[2020-03-28 01:08] LABS: BUN/CREATININE RATIO 27
[2020-03-28 01:09] LABS: MAGNESIUM 2.1 MG/DL (1.6-2.4)
--- NOTE | 2020-03-28 02:27 | NUR ---
This patient put on his call light at approx 2340 and stated that he "felt funny". This RN immediately gowned up and went into the pt's room to assess him. Upon entering this pt's room I observed a HR in the 100's and O2 sat in the 80's with a SBP of 115 - pt had generally been running in the 140's systolic. Pt appeared anxious and had hives to his back, hands, knees, and thighs, along with skin flushing. Temp at this time was 36.1. This RN notified E-ICU @ 2345 of the findings stated above. This RN received new orders at this time - see emar. Lab was notified of this transfusion reaction @ 0001. Xray arrived @ 0006. lab arrived @ 0020. pt was placed on vapotherm @ 0010 d/t intercostal retractions. This RN stayed with this patient and observed him until 0100. prior to leaving the room this pt stated that he "felt calmed down" and was "ok now". This RN will cont. to monitor.
[2020-03-28 04:13] LABS: CHLORIDE 105 MMOL/L (98-107); POTASSIUM 4.9 MMOL/L (3.6-5.0); SODIUM 134 MMOL/L (135-145)
[2020-03-28 04:14] LABS: CALCIUM 7.6 MG/DL (8.5-10.1); GLUCOSE 214 MG/DL (70-105)
[2020-03-28 04:16] LABS: CARBON DIOXIDE 19 MMOL/L (21-32)
[2020-03-28 04:18] LABS: CREATININE SERUM 0.88 MG/DL (0.60-1.30); GFR ESTIMATED > 60
[2020-03-28 04:19] LABS: BUN/CREATININE RATIO 28
[2020-03-28] MEDS ORDERED: FUROSEMIDE 40 MG/4 ML INJ (LASIX) ONE (06:40)
--- NOTE | 2020-03-28 06:56 | Progress Note - Hospitalist ---
Subjective HPI/CC On Admission Date Seen by Provider: Mar 28, 2020 Time Seen by Provider: 11:00 CC: Hypoxia with Covid-19 HPI: This is a 74yoWM who became positive for Covid-19, started having SOB, presented to the [facility] and Pt has been monitored in the ICU and is currently doing well. He usually uses 2L of oxygen at night. Overall he feels much better but the cough is pretty severe. Subjective/Events-last exam Patient doing better Plasma gave reaction with tachycardia and hypoxia so he was given Solumedrol and Pepcid and now he is doing well No pain reported Sitting in chair on Vapotherm No production to cough Review of Systems General: Fatigue, Malaise Pulmonary: Dyspnea, Cough Focused Exam Lactate Level 03/25/20 20:28: Lactic Acid Level 1.38 Objective Exam Vital Signs Vital Signs Date Time Temp Pulse Resp B/P (MAP) Pulse Ox O2 Delivery O2 Flow Rate FiO2 03/28/20 16:00 67 28 155/79 (104) 93 Vapotherm 30.00 70.00 03/28/20 14:17 70 03/28/20 13:25 36.0 Capillary Refill : Less Than 3 Seconds General Appearance: No Apparent Distress, WD/WN, Chronically ill Respiratory: Chest Non Tender, No Accessory Muscle Use, No Respiratory Distress, Crackles, Decreased Breath Sounds, Wheezing Cardiovascular: Regular Rate, Rhythm, No Edema, No Gallop, No JVD, No Murmur, Normal Peripheral Pulses Neurologic/Psychiatric: Alert, Oriented x3, No Motor/Sensory Deficits, Normal Mood/Affect Results/Procedures Lab Laboratory Tests 03/28/20 00:30 03/28/20 03:46 Patient resulted labs reviewed. Assessment/Plan Assessment and Plan Assess & Plan/Chief Complaint Assessment: COVID-19 AECOPD DM OOC Plan: Monitor O2 sats s/p plasma reaction so DC it anti-viral infusing Diagnosis/Problems Diagnosis/Problems (1) COVID-19 Status: Acute (2) Viral pneumonia Status: Acute (3) Diabetes Status: Acute (4) Dyspnea and respiratory abnormalities Status: Acute (5) COPD (chronic obstructive pulmonary disease) Status: Acute Clinical Quality Measures DVT/VTE Risk/Contraindication: Risk Factor Score Per Nursin RFS Level Per Nursing on Admit: 4+=Very High CHANDA FLORES DO Mar 28, 2020 06:56
[2020-03-28] MEDS: dexAMETHasone 6 MG TAB (DECADRON) PO SCH (07:03)
[2020-03-28] MEDS: NS IV 1000 ML 1,000 ML IV SCH (07:03)
[2020-03-28] MEDS: inSUlin ASPART (NovoLOG) 1 UNIT/0.01 ML (CHARGE PER UNIT) SC SCH ×4 (07:03→20:53)
[2020-03-28] MEDS: RT-ALBUTEROL INHALER HFA (VENTOLIN HFA) 18 GM IH SCH ×3 (07:10→14:16)
[2020-03-28] MEDS ORDERED: CEFEPIME 2 GM (MAXIPIME) VIAL ONE ×2 (07:26→20:15)
[2020-03-28] MEDS ORDERED: WATER (STERILE) FOR INJECTION 20 ML ONE ×2 (07:27→20:15)
--- NOTE | 2020-03-28 07:55 | Diagnostic Imaging Report ---
Indication: Hypoxemia Portable chest 12:14 AM There is cardiomegaly. There are diffuse alveolar infiltrates in the lungs. There is no appreciable effusion. IMPRESSION: Diffuse pulmonary infiltrates. No change compared to 03/27/2020. Dictated by: Dictated on workstation # [id number]
[2020-03-28] MEDS: CEFEPIME INJECTION 2,000 MG in WATER (STERILE) FOR INJECTION 20 ML IV SCH ×2 (07:58→20:52)
[2020-03-28] MEDS: ENOXAPARIN 40 MG/0.4 ML (LOVENOX) SYR SC SCH (07:58)
[2020-03-28] MEDS: PANTOPRAZOLE 40 MG (PROTONIX) TAB PO SCH (07:58)
[2020-03-28] MEDS: SENNA W/DOCUSATE (SENOKOT S) TABLET PO SCH ×2 (07:58→20:52)
[2020-03-28] MEDS: REMDESIVIR INJ (NON-FORMULARY) 100 MG in NS (IVPB) 230 ML IV SCH (08:14)
[2020-03-28] MEDS: RT-ALBUTEROL INHALER HFA (VENTOLIN HFA) 18 GM IH PRN (18:27)
[2020-03-28] MEDS: AZITHROMYCIN INJECTION 500 MG in NS (IVPB) 250 ML IV SCH (20:52)
[2020-03-28] MEDS: ENOXAPARIN 80 MG/0.8 ML (LOVENOX) SYR SC SCH (20:53)
[2020-03-29] VITALS (26 sets, daily range): BP systolic 122–168; BP diastolic 56–99
[2020-03-29] MEDS: guaiFENesin/CODEINE (ROBITUSSIN AC) 10ML UDC PO SCH ×7 (01:11→23:18)
[2020-03-29 03:29] LABS: BASOPHILS % (AUTO) 0 % (0-10); EOSINOPHILS % (AUTO) 0 % (0-10); HEMATOCRIT 42 % (40-54); LYMPHOCYTES % (AUTO) 14 % (12-44); MEAN CORPUSCULAR HEMOGLOBIN 30 PG (25-34); MEAN CORPUSCULAR HGB CONC 36 G/DL (32-36); MEAN CORPUSCULAR VOLUME 85 FL (80-99); MEAN PLATELET VOLUME 9.7 FL (7.4-10.4); MONOCYTES # (AUTO) 0.5 X 10^3 (0.0-1.0); MONOCYTES % (AUTO) 8 % (0-12); NEUTROPHILS # (AUTO) 5.5 X 10^3 (1.8-7.8); NEUTROPHILS % (AUTO) 78 % (42-75); PLATELET COUNT 225 10^3/uL (130-400)
[2020-03-29 03:40] LABS: CHLORIDE 106 MMOL/L (98-107); POTASSIUM 4.3 MMOL/L (3.6-5.0); SODIUM 134 MMOL/L (135-145)
[2020-03-29 03:41] LABS: CALCIUM 7.8 MG/DL (8.5-10.1); GLUCOSE 190 MG/DL (70-105)
[2020-03-29 03:43] LABS: CARBON DIOXIDE 18 MMOL/L (21-32)
[2020-03-29 03:45] LABS: CREATININE SERUM 0.79 MG/DL (0.60-1.30); GFR ESTIMATED > 60; PHOSPHORUS 2.1 MG/DL (2.3-4.7)
[2020-03-29 03:46] LABS: BUN/CREATININE RATIO 30
[2020-03-29 03:48] LABS: MAGNESIUM 2.2 MG/DL (1.6-2.4)
[2020-03-29] MEDS: inSUlin ASPART (NovoLOG) 1 UNIT/0.01 ML (CHARGE PER UNIT) SC SCH ×4 (04:56→20:38)
--- NOTE | 2020-03-29 05:25 | Pulmonary Progress Note ---
Subjective Time Seen by a Provider: 05:20 Subjective/Events-last exam Pt is requiring highflow oxygen Sepsis Event Evaluation Height, Weight, BMI Height: '" Weight: lbs. oz. kg; BMI Method: Exam Exam Vital Signs Date Time Temp Pulse Resp B/P (MAP) Pulse Ox O2 Delivery O2 Flow Rate FiO2 03/29/20 04:00 Vapotherm 30.00 70 03/29/20 02:15 55 17 127/73 (91) 93 Vapotherm 30.00 70.00 03/29/20 01:00 51 03/29/20 01:00 51 21 125/67 (86) 97 Vapotherm 30.00 70.00 03/29/20 00:15 57 18 136/72 (93) 96 Vapotherm 30.00 70.00 03/29/20 00:00 Vapotherm 30.00 70 03/28/20 23:15 58 16 122/65 (84) 98 Vapotherm 30.00 70.00 03/28/20 22:08 65 25 155/82 (106) 97 Vapotherm 30.00 70.00 03/28/20 21:00 63 32 163/85 (111) 94 Vapotherm 30.00 70.00 03/28/20 20:00 58 18 131/88 (102) 96 Vapotherm 30.00 70.00 03/28/20 20:00 Vapotherm 30.00 70 03/28/20 19:00 55 29 154/82 (106) 93 Vapotherm 30.00 70.00 03/28/20 19:00 55 03/28/20 18:45 36.4 03/28/20 18:27 93 Vapotherm 30.00 70 03/28/20 18:00 56 11 133/60 (84) 95 Vapotherm 30.00 70.00 03/28/20 17:00 54 20 147/75 (99) 100 Vapotherm 30.00 70.00 03/28/20 16:00 67 28 155/79 (104) 93 Vapotherm 30.00 70.00 03/28/20 16:00 Vapotherm 30.00 70 03/28/20 15:00 68 24 155/84 (107) 96 Vapotherm 30.00 70.00 03/28/20 14:17 92 Vapotherm 30.00 70 03/28/20 14:00 73 28 153/81 (105) 95 Vapotherm 30.00 70.00 03/28/20 13:25 36.0 03/28/20 13:00 67 26 125/59 (81) 97 Vapotherm 30.00 70.00 03/28/20 12:50 80 03/28/20 12:48 Vapotherm 30.00 70 03/28/20 12:00 73 36 153/82 (105) 95 Vapotherm 30.00 70.00 03/28/20 11:00 73 146/75 (98) 96 Vapotherm 30.00 70.00 03/28/20 10:55 96 Vapotherm 30.00 70 03/28/20 10:00 64 27 159/79 (105) 96 Vapotherm 30.00 70.00 03/28/20 09:00 73 14 133/66 (88) 96 Vapotherm 30.00 70.00 03/28/20 08:35 Vapotherm 30.00 100 03/28/20 08:00 86 14 148/79 (102) 92 Vapotherm 30.00 70.00 03/28/20 07:59 36.2 03/28/20 07:10 99 Vapotherm 30.00 100 03/28/20 07:00 64 27 148/98 (115) 99 High Flow N/C 8.00 03/28/20 07:00 78 03/28/20 06:00 71 20 140/65 (90) 95 High Flow N/C 8.00 I & O 03/29/20 07:00 Intake Total 980 ml Output Total 1200 ml Balance -220 ml Height & Weight Height: '" Weight: lbs. oz. kg; BMI Method: General Appearance: No Apparent Distress, WD/WN, Chronically ill HEENT: PERRL/EOMI, Normal ENT Inspection, Pharynx Normal, Moist Mucous Membranes Neck: Full Range of Motion, Normal Inspection, Non Tender Respiratory: Chest Non Tender, No Accessory Muscle Use, No Respiratory Distress, Crackles, Decreased Breath Sounds, Wheezing Cardiovascular: Regular Rate, Rhythm, No Edema, No Gallop, No JVD, No Murmur, Normal Peripheral Pulses Capillary Refill: Less Than 3 Seconds Gastrointestinal: normal bowel sounds, non tender, soft, no organomegaly, no pulsatile mass Extremity: Normal Capillary Refill, Normal Inspection, Normal Range of Motion, Non Tender, No Calf Tenderness, No Pedal Edema Neurologic/Psychiatric: Alert, Oriented x3, No Motor/Sensory Deficits, Normal Mood/Affect Skin: Normal Color, Warm/Dry Lymphatic: No Adenopathy Results Lab Laboratory Tests 03/28/20 00:30 03/28/20 03:46 03/29/20 03:08 Assessment/Plan Assessment/Plan Acute respiratory distress with hypoxemia COVID-19 pneumonia with diffuse bilateral pulmonary infiltrates -Remdesivir, convalescent plasma -Decadron- increase to 20mg IV secondary to hypoxia -Pt is requiring highflow oxygen -GIve 20mg of Lasix x 1 Hyponatremia -Monitor DM with uncontrolled hyperglycemia -SSI -Start Levemir 10units daily ULISES MURRY DO Mar 29, 2020 05:25
[2020-03-29] MEDS ORDERED: FUROSEMIDE 40 MG/4 ML INJ (LASIX) IVP ONE (05:30)
[2020-03-29] MEDS: RT-ALBUTEROL INHALER HFA (VENTOLIN HFA) 18 GM IH SCH ×5 (06:00→22:37)
[2020-03-29] MEDS ORDERED: FUROSEMIDE 40 MG/4 ML INJ (LASIX) ONE (07:41)
[2020-03-29] MEDS: ENOXAPARIN 80 MG/0.8 ML (LOVENOX) SYR SC SCH (08:24)
[2020-03-29] MEDS: PANTOPRAZOLE 40 MG (PROTONIX) TAB PO SCH (08:24)
[2020-03-29] MEDS: SENNA W/DOCUSATE (SENOKOT S) TABLET PO SCH ×2 (08:25→20:30)
[2020-03-29] MEDS: REMDESIVIR INJ (NON-FORMULARY) 100 MG in NS (IVPB) 230 ML IV SCH (08:25)
[2020-03-29] MEDS ORDERED: WATER (STERILE) FOR INJECTION 20 ML ONE ×2 (08:40→20:12)
[2020-03-29] MEDS ORDERED: CEFEPIME 2 GM (MAXIPIME) VIAL ONE ×2 (08:40→20:12)
[2020-03-29] MEDS: CEFEPIME INJECTION 2,000 MG in WATER (STERILE) FOR INJECTION 20 ML IV SCH ×2 (09:08→20:30)
[2020-03-29] MEDS ORDERED: RT-ALBUTEROL INHALER HFA (VENTOLIN HFA) 18 GM IH PRN (16:00)
[2020-03-29] MEDS: AZITHROMYCIN INJECTION 500 MG in NS (IVPB) 250 ML IV SCH (20:29)
[2020-03-29] MEDS: ENOXAPARIN 100 MG/1 ML (LOVENOX) SYR SC SCH (20:30)
[2020-03-30] VITALS (24 sets, daily range): BP systolic 119–173; BP diastolic 52–105
[2020-03-30 03:42] LABS: BASOPHILS % (AUTO) 0 % (0-10); EOSINOPHILS % (AUTO) 0 % (0-10); HEMATOCRIT 43 % (40-54); HEMOGLOBIN 15.4 G/DL (13.3-17.7); LYMPHOCYTES % (AUTO) 12 % (12-44); MEAN CORPUSCULAR HEMOGLOBIN 30 PG (25-34); MEAN CORPUSCULAR HGB CONC 36 G/DL (32-36); MEAN CORPUSCULAR VOLUME 85 FL (80-99); MEAN PLATELET VOLUME 9.4 FL (7.4-10.4); MONOCYTES # (AUTO) 0.6 X 10^3 (0.0-1.0); MONOCYTES % (AUTO) 7 % (0-12); NEUTROPHILS # (AUTO) 6.6 X 10^3 (1.8-7.8); NEUTROPHILS % (AUTO) 80 % (42-75); PLATELET COUNT 265 10^3/uL (130-400); WHITE BLOOD COUNT 8.2 10^3/uL (4.3-11.0)
[2020-03-30 04:10] LABS: CHLORIDE 104 MMOL/L (98-107); POTASSIUM 4.2 MMOL/L (3.6-5.0); SODIUM 136 MMOL/L (135-145)
[2020-03-30 04:12] LABS: CALCIUM 8.2 MG/DL (8.5-10.1); GLUCOSE 157 MG/DL (70-105)
[2020-03-30 04:14] LABS: CARBON DIOXIDE 22 MMOL/L (21-32)
[2020-03-30 04:16] LABS: GFR ESTIMATED > 60; PHOSPHORUS 2.2 MG/DL (2.3-4.7)
[2020-03-30 04:17] LABS: BUN/CREATININE RATIO 28
[2020-03-30 04:18] LABS: MAGNESIUM 2.1 MG/DL (1.6-2.4)
[2020-03-30] MEDS ORDERED: FUROSEMIDE 40 MG/4 ML INJ (LASIX) IVP ONE (05:00)
[2020-03-30] MEDS: guaiFENesin/CODEINE (ROBITUSSIN AC) 10ML UDC PO SCH ×6 (05:03→20:06)
[2020-03-30] MEDS: inSUlin ASPART (NovoLOG) 1 UNIT/0.01 ML (CHARGE PER UNIT) SC SCH ×4 (05:25→20:06)
[2020-03-30] MEDS: RT-ALBUTEROL INHALER HFA (VENTOLIN HFA) 18 GM IH SCH ×5 (07:28→22:23)
[2020-03-30] MEDS: REMDESIVIR INJ (NON-FORMULARY) 100 MG in NS (IVPB) 230 ML IV SCH (08:13)
[2020-03-30] MEDS: PANTOPRAZOLE 40 MG (PROTONIX) TAB PO SCH (08:14)
[2020-03-30] MEDS: dexAMETHasone INJECTION 20 MG in NS (IVPB) 50 ML IV SCH (08:14)
[2020-03-30] MEDS: CEFEPIME INJECTION 2,000 MG in WATER (STERILE) FOR INJECTION 20 ML IV SCH ×2 (08:14→20:06)
[2020-03-30] MEDS: ENOXAPARIN 100 MG/1 ML (LOVENOX) SYR SC SCH ×2 (08:14→20:06)
[2020-03-30] MEDS: SENNA W/DOCUSATE (SENOKOT S) TABLET PO SCH ×2 (08:24→20:06)
[2020-03-30] MEDS ORDERED: KCL 20 MEQ TAB (K-DUR) PO ONE (09:00)
--- NOTE | 2020-03-30 10:34 | Pulmonary Progress Note ---
Subjective Time Seen by a Provider: 05:00 Subjective/Events-last exam Pt is still requiring high flow oxygen via Vapotherm. Sepsis Event Evaluation Height, Weight, BMI Height: '" Weight: lbs. oz. kg; BMI Method: Exam Exam Vital Signs Date Time Temp Pulse Resp B/P (MAP) Pulse Ox O2 Delivery O2 Flow Rate FiO2 03/30/20 09:00 84 35 133/64 (87) 90 Vapotherm 30.00 55.00 03/30/20 08:30 36.3 03/30/20 08:22 Vapotherm 30.00 55 03/30/20 08:00 73 35 135/68 (90) 93 Vapotherm 30.00 55.00 03/30/20 07:28 93 Vapotherm 30.00 55 03/30/20 07:00 69 22 132/78 (96) 88 Vapotherm 30.00 55.00 03/30/20 06:50 72 03/30/20 06:00 68 19 134/93 (107) 94 Vapotherm 30.00 60.00 03/30/20 05:00 56 17 155/71 (99) 97 Vapotherm 30.00 60.00 03/30/20 04:00 58 14 126/55 (78) 92 Vapotherm 30.00 60.00 03/30/20 03:47 Vapotherm 30.00 60 03/30/20 03:30 61 13 149/78 (101) 92 Vapotherm 30.00 60.00 03/30/20 02:48 97 Vapotherm 30.00 60 03/30/20 02:00 49 16 145/66 (92) 95 Vapotherm 30.00 60.00 03/30/20 01:00 49 03/30/20 01:00 49 14 124/64 (84) 94 Vapotherm 30.00 60.00 03/30/20 00:00 58 18 143/63 (89) 97 Vapotherm 30.00 60.00 03/29/20 23:41 Vapotherm 30.00 60 03/29/20 23:15 72 19 158/67 (97) 89 Vapotherm 30.00 60.00 03/29/20 22:37 91 Vapotherm 30.00 60 03/29/20 22:00 64 21 135/61 (85) 95 Vapotherm 30.00 60.00 03/29/20 21:00 69 20 146/81 (102) 95 Vapotherm 30.00 60.00 03/29/20 20:43 36.4 64 20 168/87 (114) 96 Vapotherm 30.00 60.00 03/29/20 20:30 Vapotherm 30.00 60 03/29/20 20:15 60 155/74 (101) 97 Vapotherm 30.00 60.00 03/29/20 19:56 65 03/29/20 19:15 70 36 150/70 (96) 94 Vapotherm 30.00 60.00 03/29/20 19:00 75 03/29/20 18:52 95 Vapotherm 30.00 60 03/29/20 18:00 60 153/73 (99) 98 Vapotherm 30.00 60.00 03/29/20 17:00 67 18 162/80 (107) 95 Vapotherm 30.00 60.00 03/29/20 16:00 65 133/80 (97) 97 Vapotherm 30.00 60.00 03/29/20 16:00 Vapotherm 30.00 60 03/29/20 15:00 59 148/77 (100) 97 Vapotherm 30.00 60.00 03/29/20 14:14 92 Vapotherm 30.00 60 03/29/20 14:00 65 51 130/63 (85) 95 Vapotherm 30.00 60.00 03/29/20 13:26 36.4 63 94 60 03/29/20 13:00 129/56 (80) 97 Vapotherm 30.00 60.00 03/29/20 12:24 82 03/29/20 12:00 36.4 03/29/20 12:00 Vapotherm 30.00 70 03/29/20 12:00 68 21 140/88 (105) 94 Vapotherm 30.00 60.00 03/29/20 11:00 65 23 139/89 (106) 92 Vapotherm 30.00 60.00 I & O 03/30/20 07:00 Intake Total 1200 ml Output Total 2150 ml Balance -950 ml Height & Weight Height: '" Weight: lbs. oz. kg; BMI Method: General Appearance: No Apparent Distress, WD/WN, Chronically ill HEENT: PERRL/EOMI, Normal ENT Inspection, Pharynx Normal, Moist Mucous Membranes Neck: Full Range of Motion, Normal Inspection, Non Tender Respiratory: Chest Non Tender, No Accessory Muscle Use, No Respiratory Distress , Crackles, Decreased Breath Sounds, Wheezing Cardiovascular: Regular Rate, Rhythm, No Edema, No Gallop, No JVD, No Murmur, Normal Peripheral Pulses Capillary Refill: Less Than 3 Seconds Gastrointestinal: normal bowel sounds, non tender, soft, no organomegaly, no pulsatile mass Extremity: Normal Capillary Refill, Normal Inspection, Normal Range of Motion, Non Tender, No Calf Tenderness, No Pedal Edema Neurologic/Psychiatric: Alert, Oriented x3, No Motor/Sensory Deficits, Normal Mood/Affect Skin: Normal Color, Warm/Dry Lymphatic: No Adenopathy Results Lab Laboratory Tests 03/29/20 03:08 03/30/20 03:21 Assessment/Plan Assessment/Plan Acute respiratory distress with hypoxemia COVID-19 pneumonia with diffuse bilateral pulmonary infiltrates -Remdesivir, convalescent plasma -Decadron- increased to 20mg IV daily 03/29 secondary to hypoxia -Pt is requiring highflow oxygen -GIve 40mg of Lasix x 1 Hyponatremia -Monitor DM with uncontrolled hyperglycemia -SSI -Levemir 10units daily ULISES MURRY DO Mar 30, 2020 10:34
--- NOTE | 2020-03-30 16:24 | Physician Query Clarification ---
"Physician Query-General Query to Physician: History/Risk factors: Covid+, Pneumonia, COPD Clinical Findings: RR 25-36, 02 sat 88% on 55% 02, O2 needs up to 70% on Vapotherm, Dyspnea Treatment: Vapotherm, Breathing RX, IV ABX, Decadron, Remdesivir Question: What condition best reflects the above clinical scenario? Please document response in the Progress notes or Discharge Summary. 1. Acute Hypoxic Respiratory Failure 2. Dyspnea and respiratory abnormalities (as currently documented) 3. Other , with explanation of the clinical findings 4. Clinically undetermined, no explanation for the clinical findings Please remember a lack of response to the above will prompt a phone page by CDI/coding staff In responding to this query, please exercise your independent professional judgment. The purpose of this communication is to more accurately reflect the complexity of your patients condition. The fact that a question is asked does not imply that any particular answer is desired or expected. Thank you for timely response to this clarification. Rafia Mims, MSN, RN RN Specialist-Clinical Doc Improvement CD -Health Info Mgmt Operations [address] [facility] t: [phone] | f: [phone] If you are unable to reach me at my extension, I may be working from home. Please contact me at [phone] PHYSICIAN RESPONSE: Based on the clinical findings in the record, please respond to the query above on this document as an addendum. Physician Response: Physician Response 1 If you have questions please contact: Records Specialist: Ext: Thank you for your time and cooperation. Clinical Computer Systems Architect/Records Specialist This is a permanent part of the medical record RAFIA MIMS Mar 30, 2020 16:23 CHANDA FLORES DO Mar 30, 2020 21:28"
[2020-03-31] VITALS (23 sets, daily range): BP systolic 111–184; BP diastolic 59–95
[2020-03-31 03:59] LABS: BASOPHILS % (AUTO) 0 % (0-10); EOSINOPHILS % (AUTO) 0 % (0-10); HEMATOCRIT 42 % (40-54); HEMOGLOBIN 14.5 G/DL (13.3-17.7); LYMPHOCYTES # (AUTO) 0.9 X 10^3 (1.0-4.0); LYMPHOCYTES % (AUTO) 11 % (12-44); MEAN CORPUSCULAR HEMOGLOBIN 30 PG (25-34); MEAN CORPUSCULAR HGB CONC 35 G/DL (32-36); MEAN CORPUSCULAR VOLUME 86 FL (80-99); MEAN PLATELET VOLUME 9.2 FL (7.4-10.4); MONOCYTES # (AUTO) 0.7 X 10^3 (0.0-1.0); MONOCYTES % (AUTO) 9 % (0-12); NEUTROPHILS # (AUTO) 6.6 X 10^3 (1.8-7.8); NEUTROPHILS % (AUTO) 80 % (42-75); PLATELET COUNT 264 10^3/uL (130-400); WHITE BLOOD COUNT 8.2 10^3/uL (4.3-11.0)
[2020-03-31] MEDS: guaiFENesin/CODEINE (ROBITUSSIN AC) 10ML UDC PO SCH ×6 (04:16→23:59)
[2020-03-31] MEDS: RT-ALBUTEROL INHALER HFA (VENTOLIN HFA) 18 GM IH SCH ×6 (04:17→22:52)
[2020-03-31 04:18] LABS: CHLORIDE 103 MMOL/L (98-107); POTASSIUM 4.7 MMOL/L (3.6-5.0); SODIUM 136 MMOL/L (135-145)
[2020-03-31 04:19] LABS: CALCIUM 8.3 MG/DL (8.5-10.1); GLUCOSE 153 MG/DL (70-105)
[2020-03-31 04:21] LABS: CARBON DIOXIDE 25 MMOL/L (21-32)
[2020-03-31 04:23] LABS: CREATININE SERUM 0.82 MG/DL (0.60-1.30); GFR ESTIMATED > 60; PHOSPHORUS 2.5 MG/DL (2.3-4.7)
[2020-03-31 04:24] LABS: BUN/CREATININE RATIO 27
[2020-03-31 04:25] LABS: MAGNESIUM 2.2 MG/DL (1.6-2.4)
[2020-03-31] MEDS: inSUlin ASPART (NovoLOG) 1 UNIT/0.01 ML (CHARGE PER UNIT) SC SCH ×4 (05:31→20:10)
--- NOTE | 2020-03-31 08:15 | Progress Note ---
Subjective Subjective/Events-last exam Reports he is feeling fairly well and doesn't feel very short of breath although he is still requiring 60% FiO2 with 20 lpm on vapotherm. He is eating and drinking without trouble and has been ambulating in room. He is hopeful to get out of the ICU soon. Afebrile. Objective Exam Last Set of Vital Signs Vital Signs Date Time Temp Pulse Resp B/P (MAP) Pulse Ox O2 Delivery O2 Flow Rate FiO2 03/31/20 07:08 91 Vapotherm 20.00 60 03/31/20 06:00 51 136/73 (94) 03/31/20 05:24 36.0 03/31/20 05:00 15 Capillary Refill : Less Than 3 Seconds I&O Intake and Output 03/31/20 00:00 Intake Total 1520 ml Output Total 2050 ml Balance -530 ml Intake Oral 1250 ml IV Total 270 ml Output Urine Total 2050 ml General: Alert, No Acute Distress Lungs: Other (decreased air movement throughout) Heart: Regular Rate, No Murmurs Extremities: No Edema Neuro: Normal Speech Psych/Mental Status: Mood NL Results/Procedures Lab Laboratory Tests 03/30/20 11:25: Glucometer 332H 03/30/20 16:36: Glucometer 369H 03/30/20 19:55: Glucometer 352H 03/31/20 03:41: White Blood Count 8.2, Red Blood Count 4.88, Hemoglobin 14.5, Hematocrit 42, Mean Corpuscular Volume 86, Mean Corpuscular Hemoglobin 30, Mean Corpuscular Hemoglobin Concent 35, Red Cell Distribution Width 13.5, Platelet Count 264, Felicia n Platelet Volume 9.2, Neutrophils (%) (Auto) 80H, Lymphocytes (%) (Auto) 11L, Monocytes (%) (Auto) 9, Eosinophils (%) (Auto) 0, Basophils (%) (Auto) 0, Neutrophils # (Auto) 6.6, Lymphocytes # (Auto) 0.9L, Monocytes # (Auto) 0.7, Eosinophils # (Auto) 0.0, Basophils # (Auto) 0.0, Sodium Level 136, Potassium Level 4.7, Chloride Level 103, Carbon Dioxide Level 25, Anion Gap 8, Blood Urea Nitrogen 22H, Creatinine 0.82, Estimat Glomerular Filtration Rate > 60, BUN/Creatinine Ratio 27, Glucose Level 153H, Calcium Level 8.3L, Phosphorus Level 2.5, Magnesium Level 2.2 Microbiology 03/27/20 MRSA Screen - Final, Complete MRSA not isolated 03/25/20 Blood Culture - Preliminary, Resulted No growth Assessment/Plan Assessment/Plan (1) COVID-19 Status: Acute Assessment & Plan: s/p convalescent plasma and remdesevir. Also treated with azithromycin and cefepime x 5 days, will d/c today given procalcitonin has been low, no consolidating infiltrate seen on CXR. On dexamethasone high dose due to worsening hypoxia on 03/[address] Ponce. Still requiring 60% FiO2, but symptoms improving. Continue to wean O2 as tolerated. (2) COPD (chronic obstructive pulmonary disease) Status: Chronic Assessment & Plan: Albuterol q4 and q2 prn. Dexamethasone as above. (3) Diabetes Status: Chronic Assessment & Plan: Continues to have hyperglycemia, will increase levemir to 15 units and continue sliding scale. Holding home oral meds. Qualifiers: Qualified Codes: E11.65 - Type 2 diabetes mellitus with hyperglycemia; Z79.4 - [facility] (current) use of insulin (4) Acute on chronic respiratory failure with hypoxia Status: Acute Assessment & Plan: Uses 2 lpm supplemental oxygen at night baseline, currently with marked worsening secondary to viral pneumonia from SARS-CoV-2. Had some improvement after lasix, and is on daily lasix at home, although no noted diagnosis of heart failure. Will repeat dose today. (5) Elevated d-dimer Status: Acute Assessment & Plan: May be reactive, related to underlying COVID. On treatment dose enoxaparin per Dr. Ponce, continue. (6) Hyperlipidemia Status: Chronic Assessment & Plan: Resume home statin (7) Hypertension Status: Chronic Assessment & Plan: Running somewhat elevated currently, has had some bradycardia, so will resume amlodipine only for now, continue to hold metoprolol and losartan Qualifiers: Qualified Codes: I10 - Essential (primary) hypertension (8) DVT prophylaxis Status: Acute Assessment & Plan: On therapeutic enoxaparin Clinical Quality Measures DVT/VTE Risk/Contraindication: Risk Factor Score Per Nursin RFS Level Per Nursing on Admit: 4+=Very High THU GARSIA MD Mar 31, 2020 08:15
[2020-03-31] MEDS: dexAMETHasone INJECTION 20 MG in NS (IVPB) 50 ML IV SCH (08:35)
[2020-03-31] MEDS: CEFEPIME INJECTION 2,000 MG in WATER (STERILE) FOR INJECTION 20 ML IV SCH (08:38)
[2020-03-31] MEDS: PANTOPRAZOLE 40 MG (PROTONIX) TAB PO SCH (08:38)
[2020-03-31] MEDS: SENNA W/DOCUSATE (SENOKOT S) TABLET PO SCH ×2 (08:39→20:06)
[2020-03-31] MEDS: ENOXAPARIN 100 MG/1 ML (LOVENOX) SYR SC SCH ×2 (08:39→20:07)
[2020-03-31] MEDS ORDERED: FUROSEMIDE 20 MG (LASIX) TAB PO NR (11:45)
[2020-03-31] MEDS: amLODIPine 5 MG (NORVASC) TAB PO SCH (20:06)
[2020-04-01] VITALS (19 sets, daily range): BP systolic 123–173; BP diastolic 57–112
[2020-04-01] MEDS: RT-ALBUTEROL INHALER HFA (VENTOLIN HFA) 18 GM IH SCH ×5 (03:00→20:10)
[2020-04-01 03:35] LABS: BASOPHILS % (AUTO) 0 % (0-10); EOSINOPHILS % (AUTO) 0 % (0-10); HEMATOCRIT 44 % (40-54); HEMOGLOBIN 15.6 G/DL (13.3-17.7); LYMPHOCYTES # (AUTO) 0.8 X 10^3 (1.0-4.0); LYMPHOCYTES % (AUTO) 11 % (12-44); MEAN CORPUSCULAR HEMOGLOBIN 30 PG (25-34); MEAN CORPUSCULAR HGB CONC 35 G/DL (32-36); MEAN CORPUSCULAR VOLUME 85 FL (80-99); MEAN PLATELET VOLUME 9.2 FL (7.4-10.4); MONOCYTES # (AUTO) 0.6 X 10^3 (0.0-1.0); MONOCYTES % (AUTO) 8 % (0-12); NEUTROPHILS # (AUTO) 6.2 X 10^3 (1.8-7.8); NEUTROPHILS % (AUTO) 81 % (42-75); PLATELET COUNT 311 10^3/uL (130-400); WHITE BLOOD COUNT 7.6 10^3/uL (4.3-11.0)
[2020-04-01 03:50] LABS: BUN/CREATININE RATIO 26; CALCIUM 8.7 MG/DL (8.5-10.1); CARBON DIOXIDE 27 MMOL/L (21-32); CHLORIDE 99 MMOL/L (98-107); GFR ESTIMATED > 60; GLUCOSE 159 MG/DL (70-105); MAGNESIUM 2.1 MG/DL (1.6-2.4); PHOSPHORUS 3.2 MG/DL (2.3-4.7); POTASSIUM 4.5 MMOL/L (3.6-5.0); SODIUM 136 MMOL/L (135-145)
[2020-04-01] MEDS: guaiFENesin/CODEINE (ROBITUSSIN AC) 10ML UDC PO SCH ×6 (04:10→20:48)
[2020-04-01] MEDS: inSUlin ASPART (NovoLOG) 1 UNIT/0.01 ML (CHARGE PER UNIT) SC SCH ×4 (04:34→20:49)
[2020-04-01] MEDS: ENOXAPARIN 100 MG/1 ML (LOVENOX) SYR SC SCH ×2 (09:03→20:48)
[2020-04-01] MEDS: SENNA W/DOCUSATE (SENOKOT S) TABLET PO SCH ×2 (09:03→20:47)
[2020-04-01] MEDS: dexAMETHasone INJECTION 20 MG in NS (IVPB) 50 ML IV SCH (09:03)
[2020-04-01] MEDS: PANTOPRAZOLE 40 MG (PROTONIX) TAB PO SCH (09:03)
--- NOTE | 2020-04-01 11:52 | Progress Note ---
Subjective Subjective/Events-last exam Afebrile, feeling fairly well. Was able to be weaned to 5 lpm nasal cannula and states his breathing feels pretty good. He denies any other concerns. Is wondering how soon he can get out of the hospital. Objective Exam Last Set of Vital Signs Vital Signs Date Time Temp Pulse Resp B/P (MAP) Pulse Ox O2 Delivery O2 Flow Rate FiO2 04/01/20 11:30 36.0 04/01/20 11:04 90 High Flow N/C 5.00 04/01/20 11:00 143/63 (89) 04/01/20 10:00 66 39 03/31/20 15:12 50 Capillary Refill : Less Than 3 Seconds I&O Intake and Output 04/01/20 00:00 Intake Total 1012 ml Output Total 2200 ml Balance -1188 ml Intake Oral 940 ml IV Total 72 ml Output Urine Total 2200 ml General: Alert, No Acute Distress Lungs: Other (decreased air movement throughout) Heart: Regular Rate, No Murmurs Abdomen: Normal Bowel Sounds, Soft Neuro: Normal Speech Psych/Mental Status: Mood NL Results/Procedures Lab Laboratory Tests 03/31/20 12:12: Glucometer 260H 03/31/20 16:11: Glucometer 345H 03/31/20 20:03: Glucometer 304H 04/01/20 03:18: White Blood Count 7.6, Red Blood Count 5.20, Hemoglobin 15.6, Hematocrit 44, Mean Corpuscular Volume 85, Mean Corpuscular Hemoglobin 30, Mean Corpuscular Hemoglobin Concent 35, Red Cell Distribution Width 13.2, Platelet Count 311, Mean Platelet Volume 9.2, Neutrophils (%) (Auto) 81H, Lymphocytes (%) (Auto) 11L , Monocytes (%) (Auto) 8, Eosinophils (%) (Auto) 0, Basophils (%) (Auto) 0, Neutrophils # (Auto) 6.2, Lymphocytes # (Auto) 0.8L, Monocytes # (Auto) 0.6, Eosinophils # (Auto) 0.0, Basophils # (Auto) 0.0, Sodium Level 136, Potassium Level 4.5, Chloride Level 99, Carbon Dioxide Level 27, Anion Gap 10, Blood Urea Nitrogen 23H, Creatinine 0.90, Estimat Glomerular Filtration Rate > 60, BUN/Creatinine Ratio 26, Glucose Level 159H, Calcium Level 8.7, Phosphorus Level 3.2, Magnesium Level 2.1 04/01/20 11:28: Glucometer 262H Microbiology 03/27/20 MRSA Screen - Final, Complete MRSA not isolated 03/25/20 Blood Culture - Final, Complete No growth Assessment/Plan Assessment/Plan (1) COVID-19 Status: Acute Assessment & Plan: s/p convalescent plasma and remdesevir. Also treated with azithromycin and cefepime x 5 days, will d/c today given procalcitonin has been low, no consolidating infiltrate seen on CXR. On dexamethasone high dose due to worsening hypoxia on 03/[address] Ponce. Still requiring 60% FiO2, but symptoms improving. Continue to wean O2 as tolerated. 04/01 transfer to floor status, down to 5 lpm nasal cannula O2 requirement. Continue dexamethasone. (2) COPD (chronic obstructive pulmonary disease) Status: Chronic Assessment & Plan: Albuterol q4 and q2 prn. Dexamethasone as above. (3) Diabetes Status: Chronic Assessment & Plan: Continues to have hyperglycemia, will increase levemir to 15 units and continue sliding scale. Holding home oral meds. 04/01 blood sugar overall still mostly above 200, give 5 units levemir now and increase levemir to 20 units daily tonight. Qualifiers: Qualified Codes: E11.65 - Type 2 diabetes mellitus with hyperglycemia; Z79.4 - [employer] (current) use of insulin (4) Acute on chronic respiratory failure with hypoxia Status: Acute Assessment & Plan: Uses 2 lpm supplemental oxygen at night baseline, currently with marked worsening secondary to viral pneumonia from SARS-CoV-2. Had some improvement after lasix, and is on daily lasix at home, although no noted diagnosis of heart failure. Will repeat dose today 03/31. 04/01 continue daily PO lasix from home (5) Elevated d-dimer Status: Acute Assessment & Plan: May be reactive, related to underlying COVID. On treatment dose enoxaparin per Dr. Ponce, continue. (6) Hyperlipidemia Status: Chronic Assessment & Plan: Resume home statin (7) Hypertension Status: Chronic Assessment & Plan: Running somewhat elevated currently, has had some bradycardia, so will resume amlodipine only for now, continue to hold metoprolol and losartan Qualifiers: Qualified Codes: I10 - Essential (primary) hypertension (8) DVT prophylaxis Status: Acute Assessment & Plan: On therapeutic enoxaparin Clinical Quality Measures DVT/VTE Risk/Contraindication: Risk Factor Score Per Nursin RFS Level Per Nursing on Admit: 4+=Very High THU GARSIA MD Apr 01, 2020 11:52
[2020-04-01] MEDS ORDERED: LOSARTAN 100 MG (COZAAR) TABLET PO NR (16:45)
--- NOTE | 2020-04-01 19:00 | NUR ---
pt arrived on floor prior to shift change, report received from Marika raimrez RN, will assess pt
[2020-04-01] MEDS: amLODIPine 5 MG (NORVASC) TAB PO SCH (20:47)
[2020-04-02] VITALS: BP 160/74
[2020-04-02] MEDS: guaiFENesin/CODEINE (ROBITUSSIN AC) 10ML UDC PO SCH ×4 (00:25→11:57)
[2020-04-02] MEDS: RT-ALBUTEROL INHALER HFA (VENTOLIN HFA) 18 GM IH SCH ×3 (03:56→14:41)
[2020-04-02 04:00] VITALS: BP 160/72
[2020-04-02] MEDS: inSUlin ASPART (NovoLOG) 1 UNIT/0.01 ML (CHARGE PER UNIT) SC SCH ×2 (06:11→11:57)
[2020-04-02 08:00] VITALS: BP 150/72
[2020-04-02] MEDS ORDERED: LOSARTAN 100 MG (COZAAR) TABLET PO SCH (09:00)
[2020-04-02] MEDS: SENNA W/DOCUSATE (SENOKOT S) TABLET PO SCH (09:00)
[2020-04-02] MEDS ORDERED: FUROSEMIDE 20 MG (LASIX) TAB PO SCH (09:00)
[2020-04-02] MEDS: dexAMETHasone INJECTION 20 MG in NS (IVPB) 50 ML IV SCH (09:02)
[2020-04-02] MEDS: PANTOPRAZOLE 40 MG (PROTONIX) TAB PO SCH (09:02)
[2020-04-02] MEDS: ENOXAPARIN 100 MG/1 ML (LOVENOX) SYR SC SCH (09:02)
[2020-04-02 10:45] VITALS: BP 124/73
[2020-04-02 12:00] VITALS: BP 143/73
[2020-04-02] MEDS ORDERED: inSUlin ASPART (NovoLOG) 1 UNIT/0.01 ML (CHARGE PER UNIT) SC SCH (12:00)
--- NOTE | 2020-04-02 13:26 | NUR ---
RD ASSESSMENT PMHx: HTN; DM PT INTERACTION: Pt was awake and pleasant during nutrition assessment for LOS. Note pt is COVID-19 positive and assessment was done via telephone. Pt states current appetite is good. Note avg PO intake 100% x4d, per chart review. Pt states following a regular diet at home, and has no issues with chewing/swallowing food. Pt states no recent issues with nausea, vomiting, constipation, or diarrhea. Note last BM was 04/01, and pt currently on bowel regimen of senna BID, per chart review. Pt states recent 25# wt loss x1mon. Note unable to determine recent wt hx, per chart review. Pt states current DM management is "pretty fair." Note unable to determine recent HbA1c, per chart review. ABNORMAL NUTRITION-RELATED LAB VALUES LOW: HIGH: BUN 23; glu 159 Est. kcal needs: 2050 kcal | 20 kcal/kg Est. Pro needs: 82 g Pro | 0.8 g Pro/kg PES STATEMENT: Given current PO intake, no nutrition diagnosis at this time (NO-1.1) INTERVENTION: Continue with current diet order of CHO 45g/m 3snack diet. Did not offer diet education on DM management at this time. May attempt to offer prior to discharge. Will continue to follow and reassess as pt needs, intake, and status change. Conchis Schwartz, MS, RD, LD
--- NOTE | 2020-04-02 14:39 | Discharge Summary ---
Discharge Summary Hospital Course Problems/Diagnosis: (1) COVID-19 Status: Acute Assessment & Plan: s/p convalescent plasma and remdesevir. Also treated with azithromycin and cefepime x 5 days, will d/c today given procalcitonin has been low, no consolidating infiltrate seen on CXR. On dexamethasone high dose due to worsening hypoxia on 03/[address] Ponce. Still requiring 60% FiO2, but symptoms improving. Continue to wean O2 as tolerated. 04/01 transfer to floor status, down to 5 lpm nasal cannula O2 requirement. Continue dexamethasone. 04/02 discharge to swing bed, change dexamethasone back to 6 mg daily for 3 more days. (2) COPD (chronic obstructive pulmonary disease) Status: Chronic Assessment & Plan: Albuterol q4 and q2 prn. Dexamethasone as above. (3) Diabetes Status: Chronic Assessment & Plan: Continues to have hyperglycemia, will increase levemir to 15 units and continue sliding scale. Holding home oral meds. 04/01 blood sugar overall still mostly above 200, give 5 units levemir now and increase levemir to 20 units daily tonight. 04/02 d/c to swing bed, start mealtime insulin as the only controlled glucose is the fasting currently. Qualifiers: Qualified Codes: E11.65 - Type 2 diabetes mellitus with hyperglycemia; Z79.4 - assisted (current) use of insulin (4) Acute on chronic respiratory failure with hypoxia Status: Acute Assessment & Plan: Uses 2 lpm supplemental oxygen at night baseline, currently with marked worsening secondary to viral pneumonia from SARS-CoV-2. Had some improvement after lasix, and is on daily lasix at home, although no noted diagnosis of heart failure. Will repeat dose today 03/31. 04/01 continue daily PO lasix from home (5) Elevated d-dimer Status: Acute Assessment & Plan: May be reactive, related to underlying COVID. On treatment dose enoxaparin per manufacturing lead. On d/c to swing bed, change to prophylactic dosing, no clear evidence of VTE and D-dimer decreasing. (6) Hyperlipidemia Status: Chronic Assessment & Plan: Resume home statin (7) Hypertension Status: Chronic Assessment & Plan: Running somewhat elevated currently, has had some bradycardia, so will resume amlodipine only for now, continue to hold metoprolol and losartan 04/02 discharged to SWB today, increase amlodipine to 10 mg due to persistent HTN but also still having some bradycardia. Qualifiers: Qualified Codes: I10 - Essential (primary) hypertension Hospital Course Date of Admission: Mar 25, 2020 at 19:00 Admission Diagnosis : See problem list Family Physician/Provider: Michelle Last Date of Discharge: 04/02/20 Discharge Diagnosis: See problem list Hospital Course: See problem list, discharged to swing bed status. Labs and Pending Lab Test: Laboratory Tests 04/01/20 16:40: Glucometer 368H 04/01/20 19:46: Glucometer 320H 04/02/20 05:33: Glucometer 96 04/02/20 11:19: Glucometer 217H Microbiology 03/27/20 MRSA Screen - Final, Complete MRSA not isolated 03/25/20 Blood Culture - Final, Complete No growth Home Meds Active Reported Aspirin EC (Aspirin) 325 Mg Tablet.dr 162.5 Mg PO DAILY TAKES OF A 325MG TAB Vitamin C (Ascorbic Acid) 500 Mg Capsule 500 Mg PO DAILY Vitamin B-12 (Cyanocobalamin (Vitamin B-12)) 500 Mcg Tablet 500 Mcg PO DAILY Potassium (Potassium Gluconate) 99 Mg Tablet 99 Mg PO DAILY PRN Flonase Allergy Relief (Fluticasone Propionate) 9.9 Ml [place].susp 1 [place] NS DA DORI PRN 1 SPRAY EACH NARE DAILY Famotidine 20 Mg Tablet 20 Mg PO DAILY PRN Losartan Potassium 100 Mg Tablet 100 Mg PO DAILY Metoprolol Succinate 25 Mg Tab.er.24h 25 Mg PO HS Levemir (Insulin Determir) 1,000 Units/10 Ml Soln 40 Units SC DAILY Humalog (Insulin Lispro) 100 Unit/1 Ml Vial 15 Unit SC AC Amlodipine Besylate 5 Mg Tablet 5 Mg PO HS Atorvastatin Calcium 40 Mg Tablet 40 Mg PO HS Invokana (Canagliflozin) 300 Mg Tablet 300 Mg PO DAILY Metformin HCl ER (Metformin HCl) 750 Mg Tab.er.24h 1,500 Mg PO DAILY TAKES 2 (750MG) TAB Symbicort 160-4.5 Mcg Inhaler (Budesonide/Formoterol Fumarate) 10.2 Gm Hfa.aer.ad 2 Puff INH BID Albuterol Sulfate 2.5 Mg/3 Ml Vial.neb 3 Ml NEB Q6H PRN Furosemide 20 Mg Tablet 20-40 Mg PO DAILY Assessment/Pt DC Instructions Discharged to swing bed status. Discharge Diet: ADA Diet Discharge Physical Examination Allergies: Coded Allergies: pioglitazone (Verified Allergy, Unknown, cough, 03/25/20) General Appearance: No Apparent Distress, WD/WN Respiratory: Lungs Clear, Normal Breath Sounds Cardiovascular: Regular Rate, Rhythm, No Murmur Skin: Normal Color, Warm/Dry Neurologic/Psychiatric: Alert, Normal Mood/Affect Clinical Quality Measures DVT/VTE Risk/Contraindication: Risk Factor Score Per Nursin RFS Level Per Nursing on Admit: 4+=Very High THU GARSIA MD Apr 02, 2020 14:39
== END 2020-04-02 14:40 | disposition swing bed (61) | DRG 177 ==
LOC: EDUNIT# 14:55 → ER FS 14:57 → ICU 19:00 → 4TH 03-26 17:24 → ICU 03-27 01:12 → 4TH 04-01 18:56
PROVIDERS: ADMIT Internal Medicine; ATTEND Family Medicine
PROC: XW033E5 Introduction of Remdesivir Anti-infective into Peripheral Vein, Percutaneous Approach, New Technology Group 5 (ICD-10-PCS; 2020-03-26)
PROC: XW13325 Transfusion of Convalescent Plasma (Nonautologous) into Peripheral Vein, Percutaneous Approach, New Technology Group 5 (ICD-10-PCS; principal; 2020-03-27)
DX: U07.1 COVID-19 (principal); J12.89 Other viral pneumonia; J96.01 Acute respiratory failure with hypoxia; E87.1 Hypo-osmolality and hyponatremia; R06.03 Acute respiratory distress; J43.9 Emphysema, unspecified; I10 Essential (primary) hypertension; R79.89 Other specified abnormal findings of blood chemistry; E78.5 Hyperlipidemia, unspecified; R00.0 Tachycardia, unspecified; Z79.4 Long term (current) use of insulin; Z99.81 Dependence on supplemental oxygen; E11.65 Type 2 diabetes mellitus with hyperglycemia
CPT/HCPCS: 36415; 71045; 80048; 80053; 82247; 82553; 82728; 82805; 82962; 83605; 83735; 83880; 84100; 84145; 84484; 85025; 85027; 85379; 85610; 86900; 86901; 87040; 87081; 93005; 94640; 94664; 94760; 96360; 99291

== ENCOUNTER 2020-04-02 14:29 | Inpatient (IN) | payer MEDICARE ==
[~2020-04-02 14:29] MED LIST: ALBU2.5V4 NEB; AMLO5TAB9 PO; ASCO500C17 PO; ASPI325T32 PO; ATOR40TA70 PO; BUDE10.2 INH; CANA300T PO; CYAN500T62 PO; FAMO20TA5 PO; FLUT9.9S NS; FURO20TA4 PO; INSU100V SC; INSU100V5 SC; LOSA100T57 PO; METF750T45 PO; MTP25TSR PO; POTA99TA21 PO
[2020-04-02] MEDS ORDERED: ONDANSETRON 4 MG/2 ML (SDV) Z0FRAN IV PRN (14:45)
[2020-04-02] MEDS ORDERED: CALCIUM CARBONATE 500 MG (TUMS) TAB.CHEW PO PRN (14:45)
[2020-04-02] MEDS ORDERED: diphenhydrAMINE 25 MG TAB (BENADRYL) PO PRN (14:45)
[2020-04-02] MEDS ORDERED: DOCUSATE SODIUM 100 MG (COLACE) CAP PO PRN (14:45)
[2020-04-02] MEDS ORDERED: guaiFENesin/CODEINE (ROBITUSSIN AC) 10ML UDC PO SCH (14:45)
[2020-04-02] MEDS ORDERED: ALPRAZolam 0.25 MG (XANAX) TAB PO PRN (14:45)
[2020-04-02] MEDS ORDERED: MELATONIN 3 MG TABLET PO PRN (14:45)
[2020-04-02] MEDS ORDERED: HYDROcodone/APAP 5 MG/325 MG (LORTAB) TAB PO PRN (14:45)
[2020-04-02] MEDS ORDERED: ACETAMINOPHEN 325 MG TABLET PO PRN (14:45)
[2020-04-02] MEDS ORDERED: RT-ALBUTEROL INHALER HFA (VENTOLIN HFA) 18 GM IH PRN (15:15)
--- NOTE | 2020-04-02 15:26 | NUR ---
Swing Bed Note: Qualifies for swing bed for continued need of weaning steroids and high flow oxygen (COVID19, Emphysema, Viral Pneumonia). Authorization #[id number]. Auth given for 1 month with next clinical information to be submitted on 05/02/20 if patient still on swing bed.
--- NOTE | 2020-04-02 15:39 | Physical Therapy Progress Note ---
Therapy Progress Note SWB PT eval order received. Patient is currently independent with functional mobility however. Patient states he just sat down after taking a shower independently. He is ambulating in his room on his own and states he doesn't feel unsteady and has not had any LOB. No PT eval performed at this time, patient is independent with mobility. ABDIRAHMAN PARRISH PT Apr 02, 2020 15:39
--- NOTE | 2020-04-02 15:40 | NUR ---
Admission Drug Regimen Review: Date: 04/02/20 Time: 154 Review Completed, No Issues found
[2020-04-02 16:00] VITALS: BP 174/88
[2020-04-02 17:57] VITALS: BP 172/84
[2020-04-02] MEDS: inSUlin ASPART (NovoLOG) 1 UNIT/0.01 ML (CHARGE PER UNIT) SC SCH ×3 (18:02→21:32)
[2020-04-02] MEDS: guaiFENesin/CODEINE (ROBITUSSIN AC) 10ML UDC PO SCH ×2 (18:03→21:35)
[2020-04-02 18:09] VITALS: BP 145/64
--- NOTE | 2020-04-02 19:37 | NUR ---
CHERIWENDY admitted to swing bed status to room 429, with an admitting diagnosis of SWB COVID POSITIVE AND PNA, on 04/02/20 from acute inpatient status. Pt did not change rooms upon admission to Swing bed. Therapy to evaluate patient for activity needs. Pt needs met at this time, call light within reach. Will notify RN if at any point pt is unable to get up on his own.
[2020-04-02 20:00] VITALS: BP 141/66
[2020-04-02] MEDS: RT-ALBUTEROL INHALER HFA (VENTOLIN HFA) 18 GM IH SCH (20:21)
[2020-04-02] MEDS ORDERED: amLODIPine 5 MG (NORVASC) TAB PO SCH (21:00)
[2020-04-02] MEDS: SENNA W/DOCUSATE (SENOKOT S) TABLET PO SCH (21:32)
[2020-04-02] MEDS: amLODIPine 5 MG (NORVASC) TAB PO SCH (21:35)
[2020-04-03] MEDS: guaiFENesin/CODEINE (ROBITUSSIN AC) 10ML UDC PO SCH ×7 (00:16→23:52)
[2020-04-03] MEDS: RT-ALBUTEROL INHALER HFA (VENTOLIN HFA) 18 GM IH SCH ×4 (02:18→19:41)
[2020-04-03] MEDS: inSUlin ASPART (NovoLOG) 1 UNIT/0.01 ML (CHARGE PER UNIT) SC SCH ×7 (06:24→20:28)
[2020-04-03] MEDS: dexAMETHasone 6 MG TAB (DECADRON) PO SCH (06:25)
[2020-04-03 08:11] VITALS: BP 124/65
[2020-04-03] MEDS: FUROSEMIDE 20 MG (LASIX) TAB PO SCH (08:42)
[2020-04-03] MEDS: LOSARTAN 100 MG (COZAAR) TABLET PO SCH (08:42)
[2020-04-03] MEDS: SENNA W/DOCUSATE (SENOKOT S) TABLET PO SCH ×2 (08:43→21:00)
[2020-04-03] MEDS: ENOXAPARIN 40 MG/0.4 ML (LOVENOX) SYR SQ SCH (08:43)
[2020-04-03] MEDS: PANTOPRAZOLE 40 MG (PROTONIX) TAB PO SCH (08:43)
[2020-04-03 19:30] VITALS: BP 150/63
[2020-04-03] MEDS: amLODIPine 5 MG (NORVASC) TAB PO SCH (20:28)
[2020-04-04] MEDS: RT-ALBUTEROL INHALER HFA (VENTOLIN HFA) 18 GM IH SCH ×4 (03:37→19:15)
[2020-04-04] MEDS: guaiFENesin/CODEINE (ROBITUSSIN AC) 10ML UDC PO SCH ×5 (03:52→21:15)
[2020-04-04] MEDS: inSUlin ASPART (NovoLOG) 1 UNIT/0.01 ML (CHARGE PER UNIT) SC SCH ×6 (06:10→21:16)
[2020-04-04] MEDS: dexAMETHasone 6 MG TAB (DECADRON) PO SCH (06:10)
[2020-04-04 08:08] VITALS: BP 133/65
[2020-04-04] MEDS: PANTOPRAZOLE 40 MG (PROTONIX) TAB PO SCH (08:10)
[2020-04-04] MEDS: LOSARTAN 100 MG (COZAAR) TABLET PO SCH (08:10)
[2020-04-04] MEDS: ENOXAPARIN 40 MG/0.4 ML (LOVENOX) SYR SQ SCH (08:10)
[2020-04-04] MEDS: FUROSEMIDE 20 MG (LASIX) TAB PO SCH (08:10)
[2020-04-04] MEDS: SENNA W/DOCUSATE (SENOKOT S) TABLET PO SCH ×2 (08:10→21:00)
[2020-04-04 20:00] VITALS: BP 141/62
[2020-04-04] MEDS: amLODIPine 5 MG (NORVASC) TAB PO SCH (21:17)
[2020-04-05] MEDS: guaiFENesin/CODEINE (ROBITUSSIN AC) 10ML UDC PO SCH ×4 (00:27→12:27)
[2020-04-05] MEDS: RT-ALBUTEROL INHALER HFA (VENTOLIN HFA) 18 GM IH SCH ×2 (02:32→10:08)
[2020-04-05] MEDS: dexAMETHasone 6 MG TAB (DECADRON) PO SCH (05:49)
[2020-04-05] MEDS: inSUlin ASPART (NovoLOG) 1 UNIT/0.01 ML (CHARGE PER UNIT) SC SCH ×4 (05:49→12:27)
[2020-04-05] MEDS: PANTOPRAZOLE 40 MG (PROTONIX) TAB PO SCH (08:13)
[2020-04-05] MEDS: SENNA W/DOCUSATE (SENOKOT S) TABLET PO SCH (08:13)
[2020-04-05] MEDS: LOSARTAN 100 MG (COZAAR) TABLET PO SCH (08:13)
[2020-04-05] MEDS: ENOXAPARIN 40 MG/0.4 ML (LOVENOX) SYR SQ SCH (08:13)
[2020-04-05] MEDS: FUROSEMIDE 20 MG (LASIX) TAB PO SCH (08:13)
[2020-04-05 08:14] VITALS: BP 141/66
--- NOTE | 2020-04-05 10:00 | NUR ---
PT FOUND ON ROOM AIR. SPO2 88% ON ROOM AIR @ REST. PLACED PT ON O2 @ 2 LPM. SPO2 INCREASED TO 93%. Addendum: 04/05/20 at 1017 by COSMO CARO RT Amended: Links added.
--- NOTE | 2020-04-05 11:40 | Discharge Inst-Simple/Standard ---
Discharge Inst-Standard Patient Instructions/Follow Up Plan of Care/Instructions/FU: Please continue to take your medications as written. Please follow up with your primary care doctor to follow up this hospital stay. Activity as Tolerated: Yes Discharge Diet: ADA Diet Return to The Hospital For: Chest pain, shortness of breath, abdominal pain, fever, confusion, if you feel you are getting worse. MELANIE BOURGEOIS MD Apr 05, 2020 11:39
--- NOTE | 2020-04-05 11:58 | NUR ---
CM DISCHARGE FINALIZED DISCHARGE PLAN: Patient is discharging to home today self care today. His is providing his transportation and she is in route. He uses [facility] in [place] for his oxygen that he previously only needed at [facility]. He is now requiring continuous o2 at 2LPM via [place]. O2 study performed by RT. O2 study and new physician orders faxed to [facility]. Spoke with representative Denney and they are delivering a portable tank to the hospital for patient to discharge home with. He already has a concentrator set up at home. No additional needs noted et patient denies any further needs or requests. He voiced readiness to get home and denies any intent to appeal his discharge orders. Updated primary care nurse. Once oxygen is delivered he is okay to discharge from a care management standpoint.
--- NOTE | 2020-04-05 12:30 | Discharge Summary ---
Diagnosis/Chief Complaint Date of Admission Apr 02, 2020 at 14:50 Date of Discharge Discharge Date: Apr 05, 2020 Primary Care Michelle Last Discharge Summary Discharge Physical Exam Allergies: Coded Allergies: pioglitazone (Verified Allergy, Unknown, cough, 03/25/20) Vitals & I&Os Vital Signs Date Time Temp Pulse Resp B/P (MAP) Pulse Ox O2 Delivery O2 Flow Rate FiO2 04/05/20 10:08 93 Nasal Cannula 2.00 04/05/20 08:14 36.6 60 17 141/66 (91) General Appearance: No Apparent Distress, WD/WN Respiratory: Lungs Clear, No Respiratory Distress Cardiovascular: Regular Rate, Rhythm, No Murmur Gastrointestinal: Normal Bowel Sounds, Non Tender, Soft Neurologic/Psychiatric: Alert, Oriented x3 Hospital Course Pt was admitted to the hospital due to acute respiratory failure due to COVID19. He was admitted to [facility] for oxygen weaning and he did well. He was able to be titrated off oxygen at rest and found to have a 2lpm NC need with exertion. This was arranged and he was discharged home in stable condition. Labs (last 24 hrs) Laboratory Tests 04/04/20 17:13: Glucometer 299H 04/04/20 21:10: Glucometer 208H 04/05/20 05:46: Glucometer 120H 04/05/20 12:08: Glucometer 331H Patient resulted labs reviewed. Pending Labs Laboratory Tests 04/05/20 05:46: Glucometer 120 04/05/20 12:08: Glucometer 331 Discussion & Recommendations Discharge Planning: >30 minutes discharge planning Discharge Home Medications: Active Scripts Active Reported Aspirin EC (Aspirin) 325 Mg Tablet. 162.5 Mg PO DAILY TAKES OF A 325MG TAB Vitamin C (Ascorbic Acid) 500 Mg Capsule 500 Mg PO DAILY Vitamin B-12 (Cyanocobalamin (Vitamin B-12)) 500 Mcg Tablet 500 Mcg PO DAILY Potassium (Potassium Gluconate) 99 Mg Tablet 99 Mg PO DAILY PRN Flonase Allergy Relief (Fluticasone Propionate) 9.9 Ml [place].susp 1 [place] NS DAILY PRN 1 SPRAY EACH NARE DAILY Famotidine 20 Mg Tablet 20 Mg PO DAILY PRN Losartan Potassium 100 Mg Tablet 100 Mg PO DAILY Metoprolol Succinate 25 Mg Tab.er.24h 25 Mg PO HS Levemir (Insulin Determir) 1,000 Units/10 Ml Soln 40 Units SC DAILY Humalog (Insulin Lispro) 100 Unit/1 Ml Vial 15 Unit SC AC Amlodipine Besylate 5 Mg Tablet 5 Mg PO HS Atorvastatin Calcium 40 Mg Tablet 40 Mg PO HS Invokana (Canagliflozin) 300 Mg Tablet 300 Mg PO DAILY Metformin HCl ER (Metformin HCl) 750 Mg Tab.er.24h 1,500 Mg PO DAILY TAKES 2 (750MG) TAB Symbicort 160-4.5 Mcg Inhaler (Budesonide/Formoterol Fumarate) 10.2 Gm Hfa.aer.ad 2 Puff INH BID Albuterol Sulfate 2.5 Mg/3 Ml Vial.neb 3 Ml NEB Q6H PRN Furosemide 20 Mg Tablet 20-40 Mg PO DAILY Instructions to patient/family Please see electronic discharge instructions given to patient. MELANIE BOURGEOIS MD Apr 05, 2020 12:30
--- NOTE | 2020-04-05 13:10 | NUR ---
No recreational therapy assessment done as patient is being d/c today home with . Patient independent in leisure interests and planning on resuming leisure interests at home as tolerated.
--- NOTE | 2020-04-05 13:20 | NUR ---
This speech writer talked with patient via phone who is in room 429, Covid +. Patient is being d/c today home with . Discussed Notice of Medicare Non-Coverage with patient and he voiced no intention to appeal and deny any needs or further questions at this time.
== END 2020-04-05 16:10 | disposition home or self-care (01) | DRG 177 ==
LOC: 4TH 14:50
PROVIDERS: ADMIT Family Medicine; ATTEND Internal Medicine
DX: U07.1 COVID-19 (principal); J12.89 Other viral pneumonia; J43.9 Emphysema, unspecified; I10 Essential (primary) hypertension; E11.9 Type 2 diabetes mellitus without complications; Z79.4 Long term (current) use of insulin; R09.02 Hypoxemia
CPT/HCPCS: 82962; 94640; 94760; 94761